=== PATIENT | female | born 1935 | race Asian ===

== ENCOUNTER 2019-12-22 16:24 | Inpatient (IN) | payer MEDICARE, MEDICAID ==
[~2019-12-22] VITALS: Ht 160 cm; Wt 50.9 kg
--- NOTE | 2019-12-22 16:24 | NUR ---
ED Nurse Note: Pt BIBA from home d/t abdominal pain and vomiting started today this morning. Pt is AOx4, assessed with facial grimace, guarding behavior on abdominal region. Pt is urdu in speaking. Placed on bed and gown; hooked to developer support engineer. VSS, on RA. Pt's skin is intact. Will continue to monitor.
--- NOTE | 2019-12-22 16:27 | Emergency Room Report ---
History of Present Illness General Chief Complaint: Abdominal Pain Source: Patient, EMS Present Illness HPI Presents with lower abdominal pain that began at 11 AM. This associated with vomiting. The pain is constant and severe. The paramedics are uncertain whether she has had this pain before. The alleged there is been no diarrhea. The pain is rated as severe and constant. Its mid and lower abdomen. Allergies: Coded Allergies: No Known Allergies (Unverified , 12/22/19) Patient History Past Medical History: see triage record Past Surgical History: other - Lumbar fusion Social History: Denies: smoking, alcohol use, drug use Social History Narrative Last Menstrual Period: N/A Reviewed Nursing Documentation: PMH: Agreed; PSxH: Agreed Nursing Documentation-PMH Hx Cardiac Problems: No - High Cholesterol Hx Hypertension: Yes Physical Exam Vital Signs Date Time Temp Pulse Resp B/P (MAP) Pulse Ox O2 Delivery O2 Flow Rate FiO2 12/22/19 16:18 97.5 90 18 120/76 (91) 100 Room Air Sp02 EP Interpretation: reviewed, normal General Appearance: alert, GCS 15, non-toxic, mild distress - In pain Head: normocephalic Eyes: bilateral eye normal inspection, bilateral eye PERRL, bilateral eye EOMI ENT: moist mucus membranes Neck: supple Respiratory: lungs clear, normal breath sounds Cardiovascular #1: regular rate, rhythm Cardiovascular #2: 2+ radial (R) Gastrointestinal: normal inspection, non-distended, no rebound, guarding - Right lower quadrant, tenderness, hernia - Right femoral, decreased bowel sounds Genitourinary: no CVA tenderness Musculoskeletal: back normal, normal range of motion Neurologic: alert, oriented x3, grossly normal Psychiatric: anxious - In pain Skin: no rash, warm/dry Procedures Additional Procedure Procedure Narrative Reduction of hernia with direct pressure by emergency physician.. Improvement in pain with reduction of hernia. 1942 Medical Decision Making Diagnostic Impression: Primary Impression: Femoral hernia of right side Additional Impression: Leukocytosis Qualified Codes: D72.828 - Other elevated white blood cell count ER Course Presents with severe lower abdominal pain beginning at 11 AM. Differential includes diverticulitis, urinary tract infection, aortic aneurysm, pancreatitis amongst others. Evaluation with EKG, chest x-ray and CT of the abdomen. Labs will be obtained. The patient is placed on a night monitor. Patient treated with IV hydration and analgesia. EKG no injury. Labs with leukocytosis. Elevated BUN. Urinalysis clear. Improvement after morphine but still with pain. No rebound in 1714 Due to leukocytosis cefepime administered. After CT scan hernia reduced with direct pressure. Some improvement in pain. Discussed with Dr. Schofield who came to the hospital and examined the patient on the floor. He states he reduce the hernia a slight amount more. Of note the hernia was completely reduced by me in the emergency department prior to going to the floor. Discussed findings with and patient. Although hernia was reduced in the emergency department she might need to have surgery. Laboratory Tests Test 12/22/19 16:30 12/22/19 17:00 12/22/19 17:44 White Blood Count 12.6 K/UL (4.8-10.8) H Red Blood Count 3.90 M/UL (4.20-5.40) L Hemoglobin 12.4 G/DL (12.0-16.0) Hematocrit 37.7 % (37.0-47.0) Mean Corpuscular Volume 97 FL (80-99) Mean Corpuscular Hemoglobin 31.8 PG (27.0-31.0) H Mean Corpuscular Hemoglobin Concent 32.9 G/DL (32.0-36.0) Red Cell Distribution Width 12.0 % (11.6-14.8) Platelet Count 263 K/UL (150-450) Mean Platelet Volume 7.4 FL (6.5-10.1) Neutrophils (%) (Auto) 84.9 % (45.0-75.0) H Lymphocytes (%) (Auto) 12.0 % (20.0-45.0) L Monocytes (%) (Auto) 2.1 % (1.0-10.0) Eosinophils (%) (Auto) 0.4 % (0.0-3.0) Basophils (%) (Auto) 0.7 % (0.0-2.0) Prothrombin Time 11.1 SEC (9.30-11.50) Prothrombin Time INR 1.0 (0.9-1.1) Activated Partial Thromboplast Time 25 SEC (23-33) Sodium Level 144 MMOL/L (136-145) Potassium Level 4.1 MMOL/L (3.5-5.1) Chloride Level 106 MMOL/L (98-107) Carbon Dioxide Level 27 MMOL/L (21-32) Anion Gap 12 mmol/L (5-15) Blood Urea Nitrogen 21 mg/dL (7-18) H Creatinine 0.8 MG/DL (0.55-1.30) Estimate Glomerular Filtration Rate > 60 mL/min (>60) Glucose Level 132 MG/DL (74-106) H Calcium Level 10.2 MG/DL (8.5-10.1) H Total Bilirubin 0.3 MG/DL (0.2-1.0) Aspartate Amino Transferase (AST) 15 U/L (15-37) Alanine Aminotransferase (ALT) 17 U/L (12-78) Alkaline Phosphatase 68 U/L (46-116) Troponin I 0.000 ng/mL (0.000-0.056) Total Protein 7.8 G/DL (6.4-8.2) Albumin 3.9 G/DL (3.4-5.0) Globulin 3.9 g/dL Albumin/Globulin Ratio 1.0 (1.0-2.7) Lipase 144 U/L (73-393) Urine Color Pale yellow Urine Appearance Cloudy Urine pH 8 (4.5-8.0) Urine Specific [place] 1.015 (1.005-1.035) Urine Protein Negative (NEGATIVE) Urine Glucose (UA) Negative (NEGATIVE) Urine Ketones Negative (NEGATIVE) Urine Blood 2+ (NEGATIVE) H Urine Nitrite Negative (NEGATIVE) Urine Bilirubin Negative (NEGATIVE) Urine Urobilinogen Normal MG/DL (0.0-1.0) Urine Leukocyte Esterase Negative (NEGATIVE) Urine RBC 0-2 /HPF (0 - 2) Urine WBC 0 /HPF (0 - 2) Urine Squamous Epithelial Cells Occasional /LPF Urine Amorphous Sediment Moderate /LPF (NONE) H Urine Bacteria Few /HPF (NONE) Lactic Acid Level 1.00 mmol/L (0.4-2.0) EKG Diagnostic Results Rate: normal Rhythm: NSR ST Segments: no acute changes - Nonspecific ST-T wave changes Rhythm Strip Diag. Results EP Interpretation: yes Rhythm: NSR, no PVC's, no ectopy Chest X-Ray Diagnostic Results Chest X-Ray Diagnostic Results : Chest X-Ray Ordered: Yes # of Views/Limited/Complete: 1 View Indication: Other EP Interpretation: Yes Interpretation: no consolidation, no effusion, no pneumothorax, other - Lumbar fusion Impression: No acute disease Electronically Signed by: Electronically signed by Erasmo Soares MD CT/MRI/US Diagnostic Results CT/MRI/US Diagnostic Results : Imaging Test Ordered: Abdomen and pelvis Impression 5.5 cm right femoral hernia containing mesenteric fat and a short segment of entrapped small bowel, causing proximal small bowel obstruction. Last Vital Signs Date Time Temp Pulse Resp B/P (MAP) Pulse Ox O2 Delivery O2 Flow Rate FiO2 12/23/19 00:00 98.5 82 20 118/64 (82) 96 12/22/19 23:02 Room Air Status: improved Disposition: ADMITTED INPATIENT Condition: Serious Erasmo Soares MD Dec 22, 2019 16:27
[2019-12-22] MEDS ORDERED: Metoclopramide 10mg/2ml Inj IVP ONE (16:30)
[2019-12-22] MEDS ORDERED: Omnipaque-300 100ml vial INJ PRN (16:30)
[2019-12-22] MEDS ORDERED: Morphine Sulfate 4mg/ml Inj (IV USE ONLY) IVP ONE (16:30)
[2019-12-22] MEDS ORDERED: DiphenhydrAMINE 50mg/ml Inj IVP ONE (16:30)
[2019-12-22 16:35] VITALS: BP 120/76
[2019-12-22 17:23] LABS: BASOPHILS % (AUTO) 0.7 % (0.0-2.0); EOSINOPHILS % (AUTO) 0.4 % (0.0-3.0); HEMATOCRIT 37.7 % (37.0-47.0); HEMOGLOBIN 12.4 G/DL (12.0-16.0); MEAN CORPUSCULAR VOLUME 97 FL (80-99); MONOCYTES % (AUTO) 2.1 % (1.0-10.0); NEUTROPHILS % (AUTO) 84.9 % (45.0-75.0); PLATELET COUNT 263 K/UL (150-450); WHITE BLOOD COUNT 12.6 K/UL (4.8-10.8)
[2019-12-22 17:23] LABS: APPEARANCE,URINE CLOUDY; BILIRUBIN, URINE NEGATIVE (NEGATIVE); COLOR,URINE PALE YELLOW; GLUCOSE, URINE (UA) NEGATIVE (NEGATIVE); KETONES,URINE NEGATIVE (NEGATIVE); LEUKOCYTE ESTERASE ,URINE NEGATIVE (NEGATIVE); NITRITE,URINE NEGATIVE (NEGATIVE); PH,URINE 8 (4.5-8.0); PROTEIN,URINE NEGATIVE (NEGATIVE); UROBILINOGEN,URINE NORMAL MG/DL (0.0-1.0)
--- NOTE | 2019-12-22 17:30 | Diagnostic Imaging Report ---
EXAM: XR Chest, 1 View CLINICAL HISTORY: ABD PAIN TECHNIQUE: Frontal view of the chest. COMPARISON: No relevant prior studies available. FINDINGS: Lungs: Unremarkable. No consolidation. Pleural space: Unremarkable. No pneumothorax. Heart: Unremarkable. No cardiomegaly. Mediastinum: Unremarkable. Bones/joints: Posterior lumbar fusion hardware. Osteopenia. Mild degenerative changes. Other findings: Scattered sutures over IMPRESSION: No acute findings in the chest.
[2019-12-22 17:48] LABS: ANION GAP 12 mmol/L (5-15); BLOOD UREA NITROGEN 21 mg/dL (7-18); CALCIUM 10.2 MG/DL (8.5-10.1); CARBON DIOXIDE 27 MMOL/L (21-32); CHLORIDE 106 MMOL/L (98-107); CREATININE 0.8 MG/DL (0.55-1.30); POTASSIUM 4.1 MMOL/L (3.5-5.1); SODIUM 144 MMOL/L (136-145)
[2019-12-22 17:53] LABS: ALANINE AMINOTRANSFERASE 17 U/L (12-78); ALBUMIN 3.9 G/DL (3.4-5.0); ALKALINE PHOSPHATASE 68 U/L (46-116); ASPARTATE AMINO TRANSFERASE 15 U/L (15-37); BILIRUBIN,TOTAL 0.3 MG/DL (0.2-1.0)
[2019-12-22 18:22] VITALS: BP 140/78
--- NOTE | 2019-12-22 18:22 | NUR ---
ED Nurse Note: Pt went on CT on stable condition.
--- NOTE | 2019-12-22 18:38 | NUR ---
ED Nurse Note: Pt returned from CT, on stable condition.
--- NOTE | 2019-12-22 19:14 | NUR ---
HAND-OFF: Report given to Zully PALACIOS.
--- NOTE | 2019-12-22 19:30 | Diagnostic Imaging Report ---
EXAM: CT Abdomen and Pelvis With Intravenous Contrast CLINICAL HISTORY: ABD PAIN TECHNIQUE: Axial computed tomography images of the abdomen and pelvis with intravenous contrast. CTDI is 3.7 mGy and DLP is 195 mGy-cm. One or more of the following dose reduction techniques were used: automated exposure control, adjustment of the mA and/or kV according to patient size, use of iterative reconstruction technique. Coronal and sagittal reconstructions are performed COMPARISON: No relevant prior studies available. FINDINGS: Lung bases: Unremarkable. No mass. No consolidation. ABDOMEN: Liver: Unremarkable. No mass. Gallbladder and bile ducts: Unremarkable. No calcified stones. No ductal dilation. Pancreas: Unremarkable. No mass. No ductal dilation. Spleen: Unremarkable. No splenomegaly. Adrenals: Unremarkable. No mass. Kidneys and ureters: Subcentimeter bilateral renal cysts, too small to characterize. No hydronephrosis. Stomach and bowel: Large right femoral hernia measures about 5.5 cm in maximal cross-sectional diameter, containing mesenteric fat and a short segment of entrapped small bowel, causing proximal small bowel dilatation/obstruction. Proximal small bowel dilatation measures up to 3 cm in maximal diameter. No mucosal thickening. PELVIS: Appendix: Normal appendix. Bladder: Unremarkable. No mass. Reproductive: Unremarkable as visualized. ABDOMEN and PELVIS: Intraperitoneal space: Unremarkable. No free air. No significant fluid collection. Bones/joints: Posterior lumbar fusion hardware from T12-L4 cause streak artifact, decreases the sensitivity on associated images. Osteopenia. Moderate degenerative changes. Soft tissues: Within normal limits Vasculature: Moderate amount of atherosclerotic calcifications. No abdominal aortic aneurysm. Lymph nodes: Unremarkable. No enlarged lymph nodes. IMPRESSION: 5.5 cm right femoral hernia containing mesenteric fat and a short segment of entrapped small bowel, causing proximal small bowel obstruction.
[2019-12-22] MEDS ORDERED: Cefepime HCl 1 GM in D5W 55 ML IVPB ONE (19:45)
--- NOTE | 2019-12-22 19:58 | NUR ---
ED Nurse Note: Patient presented with right inguinal hernia. Dr. Soares pushed it pack in to the abdomen, patient tolerated procedure well.
--- NOTE | 2019-12-22 20:25 | NUR ---
ED Nurse Note: Patient was admited to [facility] due to abdominal pain. Patient was transfered to the unit via gurney, with all belongings. Patient AAO x4, VSS at this time, skin is warm to touch.
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
--- NOTE | 2019-12-22 21:00 | NUR ---
NURSE NOTES: dr. barnes came and evaluated the patient. per dr. barnes, we will monitor patient's hernia and put patient on NPO except for ice chips and medicine. charge nurse made aware.
--- NOTE | 2019-12-22 21:30 | NUR ---
NURSE NOTES: Received a phone call from dr. garvey and received admission orders. per dr. garvey, he's covering for dr. jo. charge nurse made aware.
--- NOTE | 2019-12-22 21:55 | History & Physical ---
History and Physical History & Physicial History and Physical HPI Patient is an 84 year old woman admitted with lower abdominal pain with associated vomiting. The pain is constant and severe, no diarrhea. Noted to have incarcerated Hernia on CT Abdomen. S/p reduction of hernia 194 Allergies: No Known Allergies Past Medical History: Hypertension, Hypercholesterolemia ROS: Negative aside from above SH: NC FH: NC Physical Exam Vital Signs Noted Date Time Temp Pulse Resp B/P (MAP) Pulse Ox O2 Delivery O2 Flow Rate FiO2 12/22/19 16:18 97.5 90 18 120/76 (91) 100 Room Air PE WDWN HEENT: NCAT, moist mm Chest: CTAB Heart: HS1, HS2, RRR Abdomen: Some lower abdominal tenderness, no rebound Extremities: Well perfused, no edema CLASSROOM PARAPROFESSIONAL: Intact Impression: Irreducible right femoral hernia Abdominal pain SBO on Abdominal CT Hypertension Hyperlipidemia Plan IV hydration and analgesia. NPO Analgenia Zofran Monitor labs Surgical Consultation PPX Cleared for Surgery from Medical Perspective EKG no injury. Improvement after morphine but still with pain. No rebound in 1715 Laboratory Tests Test 12/22/19 16:30 12/22/19 17:00 12/22/19 17:44 White Blood Count 12.6 K/UL (4.8-10.8) H Red Blood Count 3.90 M/UL (4.20-5.40) L Hemoglobin 12.4 G/DL (12.0-16.0) Hematocrit 37.7 % (37.0-47.0) Mean Corpuscular Volume 97 FL (80-99) Mean Corpuscular Hemoglobin 31.8 PG (27.0-31.0) H Mean Corpuscular Hemoglobin Concent 32.9 G/DL (32.0-36.0) Red Cell Distribution Width 12.0 % (11.6-14.8) Platelet Count 263 K/UL (150-450) Mean Platelet Volume 7.4 FL (6.5-10.1) Neutrophils (%) (Auto) 84.9 % (45.0-75.0) H Lymphocytes (%) (Auto) 12.0 % (20.0-45.0) L Monocytes (%) (Auto) 2.1 % (1.0-10.0) Eosinophils (%) (Auto) 0.4 % (0.0-3.0) Basophils (%) (Auto) 0.7 % (0.0-2.0) Prothrombin Time 11.1 SEC (9.30-11.50) Prothrombin Time INR 1.0 (0.9-1.1) Activated Partial Thromboplast Time 25 SEC (23-33) Sodium Level 144 MMOL/L (136-145) Potassium Level 4.1 MMOL/L (3.5-5.1) Chloride Level 106 MMOL/L (98-107) Carbon Dioxide Level 27 MMOL/L (21-32) Anion Gap 12 mmol/L (5-15) Blood Urea Nitrogen 21 mg/dL (7-18) H Creatinine 0.8 MG/DL (0.55-1.30) Estimate Glomerular Filtration Rate > 60 mL/min (>60) Glucose Level 132 MG/DL (74-106) H Calcium Level 10.2 MG/DL (8.5-10.1) H Total Bilirubin 0.3 MG/DL (0.2-1.0) Aspartate Amino Transferase (AST) 15 U/L (15-37) Alanine Aminotransferase (ALT) 17 U/L (12-78) Alkaline Phosphatase 68 U/L (46-116) Troponin I 0.000 ng/mL (0.000-0.056) Total Protein 7.8 G/DL (6.4-8.2) Albumin 3.9 G/DL (3.4-5.0) Globulin 3.9 g/dL Albumin/Globulin Ratio 1.0 (1.0-2.7) Lipase 144 U/L (73-393) Urine Color Pale yellow Urine Appearance Cloudy Urine pH 8 (4.5-8.0) Urine Specific [place] 1.015 (1.005-1.035) Urine Protein Negative (NEGATIVE) Urine Glucose (UA) Negative (NEGATIVE) Urine Ketones Negative (NEGATIVE) Urine Blood 2+ (NEGATIVE) H Urine Nitrite Negative (NEGATIVE) Urine Bilirubin Negative (NEGATIVE) Urine Urobilinogen Normal MG/DL (0.0-1.0) Urine Leukocyte Esterase Negative (NEGATIVE) Urine RBC 0-2 /HPF (0 - 2) Urine WBC 0 /HPF (0 - 2) Urine Squamous Epithelial Cells Occasional /LPF Urine Amorphous Sediment Moderate /LPF (NONE) H Urine Bacteria Few /HPF (NONE) Lactic Acid Level 1.00 mmol/L (0.4-2.0) EKG: Rate: normal Rhythm: NSR ST Segments: no acute changes - Nonspecific ST-T wave changes CXR: no abnormality Erasmo Bennett MD Dec 22, 2019 21:55
[2019-12-22] MEDS ORDERED: Hydromorphone 0.5mg/0.5ml inj IVP PRN (22:00)
[2019-12-22] MEDS ORDERED: HydrALAZINE 25mg tab ORAL PRN (22:00)
[2019-12-22] MEDS ORDERED: D5 1/2NS 1,000 ML IV SCH (22:00)
--- NOTE | 2019-12-22 22:14 | Consultation ---
History of Present Illness General Date patient seen: Dec 22, 2019 Reason for Hospitalization: Abdominal Pain Present Illness HPI This is a very pleasant 84-year-old Turkmen speaking female who presented to [facility] emergency department for evaluation of abdominal pain beginning earlier today. Turkmen floral design teacher was used to obtain information from patient. States she has been having pain right groin pain since today which is a cramping abdominal pain. Intermittent nausea currently no emesis. Had a CT scan emergency permit identifying a incarcerated femoral hernia. Surgery was called to evaluate and assist with care. Patient seen, patient evaluated, chart reviewed no diarrhea cannot recall last bowel movement Allergies: Coded Allergies: No Known Allergies (Unverified , 12/22/19) Patient History History Provided By: Patient, Medical Record, PMD Healthcare decision maker Resuscitation status Advanced Directive on File Past Medical/Surgical History Past Medical/Surgical History: (1) Irreducible right femoral hernia Review of Systems Review of Symptoms General ROS: no weight loss or fever Psychological ROS: no depression or mood changes, no memory loss Ophthalmic ROS: no visual changes or eye irritation ENT ROS: no nasal congestion, hearing loss, dizziness Allergy and Immunology ROS: no allergic symptoms or urticaria Hematological and Lymphatic ROS: no swollen glands, unusual bleeding or bruising Endocrine ROS: no polyuria, polydipsia, weight changes, temperature intolerance Respiratory ROS: no cough, shortness of breath, or wheezing Cardiovascular ROS: no chest pain or dyspnea on exertion Gastrointestinal ROS: abdominal pain, no bright red blood in stool. Musculoskeletal ROS: no myalgias or arthralgias Neurological ROS: no TIA or stroke symptoms Dermatological ROS: no new or changing skin lesions, rashes or pruritis Physical Exam Physical Exam General appearance: alert, cooperative, no distress, appears stated age Head: Normocephalic, without obvious abnormality, atraumatic Eyes: conjunctivae/corneas clear. PERRL, EOM's intact. Fundi benign Throat: Lips, mucosa, and tongue normal. Teeth and gums normal Neck: supple, symmetrical, trachea midline, no adenopathy, thyroid: not enlarged, symmetric, no tenderness/mass/nodules, no carotid bruit and no JVD Lungs: clear to auscultation bilaterally Heart: regular rate and rhythm, S1, S2 normal, no murmur, click, rub or gallop Abdomen: soft, generalized discomfort/tender. Bowel sounds decreased. Right groin mass identified as femoral hernia, no organomegaly Extremities: extremities normal, atraumatic, no cyanosis or edema Pulses: 2+ and symmetric Skin: Skin color, texture, turgor normal. No rashes or lesions Neurologic: Grossly normal Last 24 Hour Vital Signs Date Time Temp Pulse Resp B/P (MAP) Pulse Ox O2 Delivery O2 Flow Rate FiO2 12/22/19 20:28 98.2 76 20 134/67 98 Room Air 12/22/19 18:22 97.5 91 20 140/78 100 Room Air 12/22/19 17:08 97.5 12/22/19 16:35 97.5 92 18 120/76 100 Room Air 12/22/19 16:35 90 18 Room Air 12/22/19 16:18 97.5 90 18 120/76 (91) 100 Room Air Laboratory Tests Test 12/22/19 16:30 12/22/19 17:00 12/22/19 17:44 White Blood Count 12.6 K/UL (4.8-10.8) H Red Blood Count 3.90 M/UL (4.20-5.40) L Hemoglobin 12.4 G/DL (12.0-16.0) Hematocrit 37.7 % (37.0-47.0) Mean Corpuscular Volume 97 FL (80-99) Mean Corpuscular Hemoglobin 31.8 PG (27.0-31.0) H Mean Corpuscular Hemoglobin Concent 32.9 G/DL (32.0-36.0) Red Cell Distribution Width 12.0 % (11.6-14.8) Platelet Count 263 K/UL (150-450) Mean Platelet Volume 7.4 FL (6.5-10.1) Neutrophils (%) (Auto) 84.9 % (45.0-75.0) H Lymphocytes (%) (Auto) 12.0 % (20.0-45.0) L Monocytes (%) (Auto) 2.1 % (1.0-10.0) Eosinophils (%) (Auto) 0.4 % (0.0-3.0) Basophils (%) (Auto) 0.7 % (0.0-2.0) Prothrombin Time 11.1 SEC (9.30-11.50) Prothromb Time International Ratio 1.0 (0.9-1.1) Activated Partial Thromboplast Time 25 SEC (23-33) Sodium Level 144 MMOL/L (136-145) Potassium Level 4.1 MMOL/L (3.5-5.1) Chloride Level 106 MMOL/L (98-107) Carbon Dioxide Level 27 MMOL/L (21-32) Anion Gap 12 mmol/L (5-15) Blood Urea Nitrogen 21 mg/dL (7-18) H Creatinine 0.8 MG/DL (0.55-1.30) Estimat Glomerular Filtration Rate > 60 mL/min (>60) Glucose Level 132 MG/DL (74-106) H Calcium Level 10.2 MG/DL (8.5-10.1) H Total Bilirubin 0.3 MG/DL (0.2-1.0) Aspartate Amino Transf (AST/SGOT) 15 U/L (15-37) Alanine Aminotransferase (ALT/SGPT) 17 U/L (12-78) Alkaline Phosphatase 68 U/L (46-116) Troponin I 0.000 ng/mL (0.000-0.056) Total Protein 7.8 G/DL (6.4-8.2) Albumin 3.9 G/DL (3.4-5.0) Globulin 3.9 g/dL Albumin/Globulin Ratio 1.0 (1.0-2.7) Lipase 144 U/L (73-393) Urine Color Pale yellow Urine Appearance Cloudy Urine pH 8 (4.5-8.0) Urine Specific [place] 1.015 (1.005-1.035) Urine Protein Negative (NEGATIVE) Urine Glucose (UA) Negative (NEGATIVE) Urine Ketones Negative (NEGATIVE) Urine Blood 2+ (NEGATIVE) H Urine Nitrite Negative (NEGATIVE) Urine Bilirubin Negative (NEGATIVE) Urine Urobilinogen Normal MG/DL (0.0-1.0) Urine Leukocyte Esterase Negative (NEGATIVE) Urine RBC 0-2 /HPF (0 - 2) Urine WBC 0 /HPF (0 - 2) Urine Squamous Epithelial Cells Occasional /LPF Urine Amorphous Sediment Moderate /LPF (NONE) H Urine Bacteria Few /HPF (NONE) Lactic Acid Level 1.00 mmol/L (0.4-2.0) Height (Feet): 5 Height (Inches): 4.00 Weight (Pounds): 115 Medications Current Medications Medications (Trade) Dose Ordered Sig/Quique Route PRN Reason Start Time Stop Time Status Last Admin Dose Admin Acetaminophen (Tylenol) 650 mg Q6H PRN ORAL Mild Pain/Temp > 100.5 12/22/19 22:00 01/21/20 21:59 Barium Sulfate (Readi-Cat 2) 450 ml NOW PRN ORAL Radiology Procedure 12/22/19 16:30 12/24/19 16:25 Dextrose/Sodium Chloride 1,000 ml @ 65 mls/hr [id number] IV 12/22/19 22:00 01/21/20 21:59 Heparin Sodium (Porcine) (Heparin 5000 units/ml) 5,000 units Q12HR SUBQ 12/23/19 09:00 01/22/20 08:59 Hydralazine HCl (Apresoline) 25 mg Q6H PRN ORAL For High Blood Pressure 12/22/19 22:00 01/21/20 21:59 Hydromorphone HCl (Dilaudid) 0.5 mg Q4H PRN IVP Severe Pain (Pain Scale 7-10) 12/22/19 22:00 12/29/19 21:59 Iohexol (OMNIPAQUE-300 100ml) 100 ml NOW PRN INJ Radiology Procedure 12/22/19 16:30 12/24/19 16:25 Ondansetron HCl (Zofran) 4 mg Q6H PRN IVP Nausea & Vomiting 12/22/19 22:00 01/21/20 21:59 Piperacillin Sod/ Tazobactam Sod 3.375 gm/Sodium Chloride 110 ml @ 27.5 mls/hr Q8H IVPB 12/22/19 23:00 12/29/19 22:59 Sodium Chloride 1,000 ml @ 300 mls/hr Q3H20M IV 12/22/19 16:30 01/21/20 16:29 12/22/19 20:04 Assessment/Plan Problem List: (1) Irreducible right femoral hernia Assessment & Plan: Patient identified to have a re-incarcerated right inguinal hernia as CT identified with a loop of bowel causing proximal obstruction. Case discussed with emergency room physician who had fortunately initially reduce the hernia in the emergency department admitted for evaluation and care. When seen at bedside she was still with discomfort but no peritonitis. She was identified to have a right inguinal femoral hernia which I was personally able to reduce as well at the bedside. Seems likely occurred since reduction in the emergency department again but is again reducible now. I had a long discussion with the patient regards to these findings. Patient states that once reduced if not feels better again. Currently no nausea vomiting. She does have decreased bowel sounds and no flatus currently. No acute emergency surgery recommended. Will monitor closely. If continues to recur will likely recommend surgery or if not improving. Will need to monitor exam closely as exact duration of incarceration unknown and initial exam unknown to myself. There is always a potential of nonviable bowel as well. Will monitor closely without examination. If develops worsening tenderness nausea vomiting or does not improve will proceed with diagnostic laparoscopy and intervention as necessary. N.p.o., IV fluids, serial exams we will follow with recommendations thank you for let me participate in patient's care ABDOMEN: Liver: Unremarkable. No mass. Gallbladder and bile ducts: Unremarkable. No calcified stones. No ductal dilation. Pancreas: Unremarkable. No mass. No ductal dilation. Spleen: Unremarkable. No splenomegaly. Adrenals: Unremarkable. No mass. Kidneys and ureters: Subcentimeter bilateral renal cysts, too small to characterize. No hydronephrosis. Stomach and bowel: Large right femoral hernia measures about 5.5 cm in maximal cross-sectional diameter, containing mesenteric fat and a short segment of entrapped small bowel, causing proximal small bowel dilatation/obstruction. Proximal small bowel dilatation measures up to 3 cm in maximal diameter. No mucosal thickening. PELVIS: Appendix: Normal appendix. Bladder: Unremarkable. No mass. Reproductive: Unremarkable as visualized. ABDOMEN and PELVIS: Intraperitoneal space: Unremarkable. No free air. No significant fluid collection. Bones/joints: Posterior lumbar fusion hardware from T12-L4 cause streak artifact, decreases the sensitivity on associated images. Osteopenia. Moderate degenerative changes. Soft tissues: Within normal limits Vasculature: Moderate amount of atherosclerotic calcifications. No abdominal aortic aneurysm. Lymph nodes: Unremarkable. No enlarged lymph nodes. IMPRESSION: 5.5 cm right femoral hernia containing mesenteric fat and a short segment of entrapped small bowel, causing proximal small bowel obstruction. ICD Codes: K41.30 - Unilateral femoral hernia, with obstruction, without gangrene, not specified as recurrent SNOMED: [id number] AlesiaolyvigneshClay Dec 22, 2019 22:14
[2019-12-22] MEDS ORDERED: Morphine Sulfate 2mg/ml Inj(IV/IM USE ONLY) IVP PRN (22:15)
[2019-12-22] MEDS ORDERED: DiphenhydrAMINE 25mg Tab ORAL PRN (22:15)
[2019-12-22] MEDS: Piperacillin/Tazobactam 3.375 GM in NS 110 ML IVPB SCH (22:20)
[2019-12-22] MEDS ORDERED: NS w/KCl 20mEq 1000ml 1,000 ML IV SCH (23:15)
[2019-12-23] VITALS: BP 118/64
[2019-12-23 04:00] VITALS: BP 104/63
[2019-12-23] MEDS: Piperacillin/Tazobactam 3.375 GM in NS 110 ML IVPB SCH ×3 (05:42→22:17)
--- NOTE | 2019-12-23 07:24 | NUR ---
HAND-OFF: Report given to gi luther.
--- NOTE | 2019-12-23 07:33 | NUR ---
NURSE NOTES: patient in bed. sleeping. no respiratory distress noted. no facial grimacing noted. NPO excepts ice and meds. IV on RAC running Zosyn. Xray abd scheduled today. bed in the lowest position and locked. call light within reach. will continue to provide plan of care.
[2019-12-23 08:00] VITALS: BP 117/64
[2019-12-23 08:27] LABS: BASOPHILS % (AUTO) 0.6 % (0.0-2.0); EOSINOPHILS % (AUTO) 1.1 % (0.0-3.0); HEMOGLOBIN 10.3 G/DL (12.0-16.0); LYMPHOCYTES % (AUTO) 27.4 % (20.0-45.0); MEAN CORPUSCULAR VOLUME 94 FL (80-99); MONOCYTES % (AUTO) 5.6 % (1.0-10.0); NEUTROPHILS % (AUTO) 65.4 % (45.0-75.0); PLATELET COUNT 211 K/UL (150-450); RED BLOOD COUNT 3.21 M/UL (4.20-5.40); RED CELL DISTRIBUTION WIDTH 10.7 % (11.6-14.8)
[2019-12-23 08:31] LABS: INR 1.1 (0.9-1.1)
[2019-12-23] MEDS ORDERED: Heparin 5000 units/ml inj SUBQ SCH (09:00)
[2019-12-23 09:09] LABS: ALANINE AMINOTRANSFERASE 14 U/L (12-78); ALBUMIN 2.7 G/DL (3.4-5.0); ALBUMIN/GLOBULIN RATIO 0.8 (1.0-2.7); ALKALINE PHOSPHATASE 49 U/L (46-116); ANION GAP 11 mmol/L (5-15); ASPARTATE AMINO TRANSFERASE 11 U/L (15-37); BILIRUBIN,TOTAL 0.5 MG/DL (0.2-1.0); BLOOD UREA NITROGEN 18 mg/dL (7-18); CALCIUM 8.5 MG/DL (8.5-10.1); CARBON DIOXIDE 24 MMOL/L (21-32); CHLORIDE 108 MMOL/L (98-107); CHOLESTEROL 192 MG/DL (< 200); CREATININE 0.7 MG/DL (0.55-1.30); HDL CHOLESTEROL 54 MG/DL (40-60); POTASSIUM 3.6 MMOL/L (3.5-5.1); SODIUM 143 MMOL/L (136-145); TRIGLYCERIDES 63 MG/DL (30-150)
[2019-12-23] MEDS ORDERED: DOXYCYCLINE MO100 MG ORAL (11:10)
[2019-12-23] MEDS ORDERED: BENICAR40 MG ORAL (11:11)
[2019-12-23] MEDS ORDERED: ELIQUIS2.5 MG PO (11:19)
[2019-12-23] MEDS ORDERED: MELOXICAM15 MG PO (11:19)
[2019-12-23] MEDS ORDERED: FENOFIBRATE145 M1 ORAL (11:19)
[2019-12-23] MEDS ORDERED: APRODINE TABLE1 EACH PO (11:19)
[2019-12-23] MEDS ORDERED: NORCO 5-325 TA1 EACH ORAL (11:19)
[2019-12-23] MEDS ORDERED: ZOLPIDEM TARTRAT5 MG ORAL (11:19)
[2019-12-23 12:00] VITALS: BP 145/76
--- NOTE | 2019-12-23 12:08 | Diagnostic Imaging Report ---
EXAM: XR Abdomen, 1 Views CLINICAL HISTORY: F/U TECHNIQUE: Frontal view of the abdomen/pelvis . COMPARISON: CT abdomen and pelvis 12/22/19 FINDINGS: Gastrointestinal tract: Oral contrast in the colon has reached the distal sigmoid colon. Focal gassy small bowel left mid abdomen without obstruction. Bones/joints: Fixation hardware L1-L4. IMPRESSION: 1. Oral contrast in the colon has reached the distal sigmoid colon. 2. Focal gassy small bowel left mid abdomen without obstruction.
--- NOTE | 2019-12-23 12:30 | NUR ---
NURSE NOTES: patient BP 143/76@1200. Hx of HTN. she takes Olmesartan 40mg tab PO daily at home. Patient seen by Dr. Bennett, received order continue Olmesartan 40mg daily. Pharmacy was not able to provide Olmesartan and pharmacist recommended equivalent medication, Avapro 300mg tab po daily. order noted and carried out.
--- NOTE | 2019-12-23 13:16 | Pre-Procedure Note/Attestation ---
Pre-Procedure Note/Attestation Complete Prior to Procedure Planned Procedure: right Procedure Narrative: Right femoral hernia repair with mesh Indications for Procedure Pre-Operative Diagnosis: incarcerated right femoral hernia Attestation I attest that I discussed the nature of the procedure; its benefits; risks and complications; and alternatives (and the risks and benefits of such alternatives ), prior to the procedure, with the patient (or the patient's legal sales representative jewelry). I attest that, if there was a reasonable possibility of needing a blood transfusion, the patient (or the patient's legal sales representative jewelry) was given the [facility] standardized written summary, pursuant to the Baldemar Karlo Blood Safety Act ([place] Health and Safety Code # 1645, as amended). I attest that I re-evaluated the patient just prior to the surgery and that there has been no change in the patient's H&P, except as documented below: Clay Davis Dec 23, 2019 13:16
--- NOTE | 2019-12-23 13:16 | General Surgery Progress Note ---
General Surgery-Progress Note Subjective Additional Comments Patient seen and examined bedside. No acute events. States she is feels better abdominal pain is improved. X-ray noted contrast in colon now. Not passing significant flatus. Not hungry. No nausea vomiting fever chills. Labs noted. On examination hernia has recurred and is noted again. More difficult and reduction today. Objective Last 24 Hour Vital Signs Date Time Temp Pulse Resp B/P (MAP) Pulse Ox O2 Delivery O2 Flow Rate FiO2 12/23/19 09:00 Room Air 12/23/19 08:00 97.2 72 15 117/64 (81) 98 12/23/19 04:00 97.2 71 19 104/63 (77) 98 12/23/19 00:00 98.5 82 20 118/64 (82) 96 12/22/19 23:02 Room Air 12/22/19 20:28 98.2 76 20 134/67 98 Room Air 12/22/19 18:22 97.5 91 20 140/78 100 Room Air 12/22/19 17:08 97.5 12/22/19 16:35 97.5 92 18 120/76 100 Room Air 12/22/19 16:35 90 18 Room Air 12/22/19 16:18 97.5 90 18 120/76 (91) 100 Room Air I&O Intake and Output 12/22/19 12/23/19 19:00 07:00 Intake Total 175.0 ml Balance 175.0 ml Intake IV Total 175.0 ml # Voids 1 Cardiovascular: RSR Respiratory: clear Abdomen: soft, flat, non-tender, decreased bowel sounds Extremities: no edema, no tenderness, no cyanosis Laboratory Tests Test 12/22/19 16:30 12/22/19 17:00 12/22/19 17:44 12/23/19 05:37 White Blood Count 12.6 K/UL (4.8-10.8) H 9.0 K/UL (4.8-10.8) Red Blood Count 3.90 M/UL (4.20-5.40) L 3.21 M/UL (4.20-5.40) L Hemoglobin 12.4 G/DL (12.0-16.0) 10.3 G/DL (12.0-16.0) L Hematocrit 37.7 % (37.0-47.0) 30.0 % (37.0-47.0) L Mean Corpuscular Volume 97 FL (80-99) 94 FL (80-99) Mean Corpuscular Hemoglobin 31.8 PG (27.0-31.0) H 32.1 PG (27.0-31.0) H Mean Corpuscular Hemoglobin Concent 32.9 G/DL (32.0-36.0) 34.3 G/DL (32.0-36.0) Red Cell Distribution Width 12.0 % (11.6-14.8) 10.7 % (11.6-14.8) L Platelet Count 263 K/UL (150-450) 211 K/UL (150-450) Mean Platelet Volume 7.4 FL (6.5-10.1) 5.6 FL (6.5-10.1) L Neutrophils (%) (Auto) 84.9 % (45.0-75.0) H 65.4 % (45.0-75.0) Lymphocytes (%) (Auto) 12.0 % (20.0-45.0) L 27.4 % (20.0-45.0) Monocytes (%) (Auto) 2.1 % (1.0-10.0) 5.6 % (1.0-10.0) Eosinophils (%) (Auto) 0.4 % (0.0-3.0) 1.1 % (0.0-3.0) Basophils (%) (Auto) 0.7 % (0.0-2.0) 0.6 % (0.0-2.0) Prothrombin Time 11.1 SEC (9.30-11.50) 11.4 SEC (9.30-11.50) Prothromb Time International Ratio 1.0 (0.9-1.1) 1.1 (0.9-1.1) Activated Partial Thromboplast Time 25 SEC (23-33) 26 SEC (23-33) Sodium Level 144 MMOL/L (136-145) 143 MMOL/L (136-145) Potassium Level 4.1 MMOL/L (3.5-5.1) 3.6 MMOL/L (3.5-5.1) Chloride Level 106 MMOL/L (98-107) 108 MMOL/L (98-107) H Carbon Dioxide Level 27 MMOL/L (21-32) 24 MMOL/L (21-32) Anion Gap 12 mmol/L (5-15) 11 mmol/L (5-15) Blood Urea Nitrogen 21 mg/dL (7-18) H 18 mg/dL (7-18) Creatinine 0.8 MG/DL (0.55-1.30) 0.7 MG/DL (0.55-1.30) Estimat Glomerular Filtration Rate > 60 mL/min (>60) > 60 mL/min (>60) Glucose Level 132 MG/DL (74-106) H 99 MG/DL (74-106) Calcium Level 10.2 MG/DL (8.5-10.1) H 8.5 MG/DL (8.5-10.1) Total Bilirubin 0.3 MG/DL (0.2-1.0) 0.5 MG/DL (0.2-1.0) Aspartate Amino Transf (AST/SGOT) 15 U/L (15-37) 11 U/L (15-37) L Alanine Aminotransferase (ALT/SGPT) 17 U/L (12-78) 14 U/L (12-78) Alkaline Phosphatase 68 U/L (46-116) 49 U/L (46-116) Troponin I 0.000 ng/mL (0.000-0.056) Total Protein 7.8 G/DL (6.4-8.2) 5.9 G/DL (6.4-8.2) L Albumin 3.9 G/DL (3.4-5.0) 2.7 G/DL (3.4-5.0) L Globulin 3.9 g/dL 3.2 g/dL Albumin/Globulin Ratio 1.0 (1.0-2.7) 0.8 (1.0-2.7) L Lipase 144 U/L (73-393) Urine Color Pale yellow Urine Appearance Cloudy Urine pH 8 (4.5-8.0) Urine Specific [place] 1.015 (1.005-1.035) Urine Protein Negative (NEGATIVE) Urine Glucose (UA) Negative (NEGATIVE) Urine Ketones Negative (NEGATIVE) Urine Blood 2+ (NEGATIVE) H Urine Nitrite Negative (NEGATIVE) Urine Bilirubin Negative (NEGATIVE) Urine Urobilinogen Normal MG/DL (0.0-1.0) Urine Leukocyte Esterase Negative (NEGATIVE) Urine RBC 0-2 /HPF (0 - 2) Urine WBC 0 /HPF (0 - 2) Urine Squamous Epithelial Cells Occasional /LPF Urine Amorphous Sediment Moderate /LPF (NONE) H Urine Bacteria Few /HPF (NONE) Lactic Acid Level 1.00 mmol/L (0.4-2.0) Erythrocyte Sedimentation Rate 20 MM/HR (0-30) Hemoglobin A1c 5.4 % (4.3-6.0) C-Reactive Protein, Quantitative < 0.4 mg/dL (0.00-0.90) Pro-B-Type Natriuretic Peptide 223 pg/mL (0-125) H Triglycerides Level 63 MG/DL (30-150) Cholesterol Level 192 MG/DL (< 200) LDL Cholesterol 117 mg/dL (<100) H HDL Cholesterol 54 MG/DL (40-60) Cholesterol/HDL Ratio 3.6 (3.3-4.4) Plan Problems: (1) Leukocytosis (2) Femoral hernia of right side Assessment & Plan: Patient identified to have a re-incarcerated right inguinal hernia as CT identified with a loop of bowel causing proximal obstruction. Case discussed with emergency room physician who had fortunately initially reduce the hernia in the emergency department admitted for evaluation and care. When seen at bedside she was still with discomfort but no peritonitis. She was identified to have a right inguinal femoral hernia which I was personally able to reduce as well at the bedside. Seems likely occurred since reduction in the emergency department again but is again reducible now. I had a long discussion with the patient regards to these findings. Patient states that once reduced if not feels better again. Currently no nausea vomiting. She does have decreased bowel sounds and no flatus currently. No acute emergency surgery recommended. Will monitor closely. If continues to recur will likely recommend surgery or if not improving. Will need to monitor exam closely as exact duration of incarceration unknown and initial exam unknown to myself. There is always a potential of nonviable bowel as well. Will monitor closely without examination. If develops worsening tenderness nausea vomiting or does not improve will proceed with diagnostic laparoscopy and intervention as necessary. N.p.o., IV fluids, serial exams we will follow with recommendations thank you for let me participate in patient's care ABDOMEN: Liver: Unremarkable. No mass. Gallbladder and bile ducts: Unremarkable. No calcified stones. No ductal dilation. Pancreas: Unremarkable. No mass. No ductal dilation. Spleen: Unremarkable. No splenomegaly. Adrenals: Unremarkable. No mass. Kidneys and ureters: Subcentimeter bilateral renal cysts, too small to characterize. No hydronephrosis. Stomach and bowel: Large right femoral hernia measures about 5.5 cm in maximal cross-sectional diameter, containing mesenteric fat and a short segment of entrapped small bowel, causing proximal small bowel dilatation/obstruction. Proximal small bowel dilatation measures up to 3 cm in maximal diameter. No mucosal thickening. PELVIS: Appendix: Normal appendix. Bladder: Unremarkable. No mass. Reproductive: Unremarkable as visualized. ABDOMEN and PELVIS: Intraperitoneal space: Unremarkable. No free air. No significant fluid collection. Bones/joints: Posterior lumbar fusion hardware from T12-L4 cause streak artifact, decreases the sensitivity on associated images. Osteopenia. Moderate degenerative changes. Soft tissues: Within normal limits Vasculature: Moderate amount of atherosclerotic calcifications. No abdominal aortic aneurysm. Lymph nodes: Unremarkable. No enlarged lymph nodes. IMPRESSION: 5.5 cm right femoral hernia containing mesenteric fat and a short segment of entrapped small bowel, causing proximal small bowel obstruction. Additional Comments Patient seen examined bedside. She feels better and x-rays improved obstruction is resolved unfortunately hernia is recurred and more difficult to reduce. I discussed this with the patient using a delinquent account clerk as well as discussed it with her son. Patient states that she understands and it is causing her discomfort and has not been like this before. Given these findings and the course of care I strongly recommend repair of this hernia prior to discharge as high risk for potential interval re-incarceration as it continues to come out repetitively. I discussed with the patient and family and they have consented to proceed with procedure will plan for tomorrow morning. Clay Davis Dec 23, 2019 13:15
[2019-12-23] MEDS: Irbesartan 150mg tablet ORAL SCH (13:51)
[2019-12-23] MEDS ORDERED: NS 500ML ONE (15:49)
[2019-12-23 16:00] VITALS: BP 140/80
--- NOTE | 2019-12-23 16:03 | Pulmonology Progress Note ---
Assessment/Plan Assessment/Plan Pulmonary Progress Note HPI Patient is an 84 year old woman admitted with lower abdominal pain with associated vomiting. The pain is constant and severe, no diarrhea. Noted to have incarcerated Hernia on CT Abdomen. S/p reduction of hernia 194, has required subsequent reductions by Surgery Allergies: No Known Allergies Past Medical History: Hypertension, Hypercholesterolemia ROS: Negative aside from above SH: NC FH: NC Physical Exam Vital Signs Noted WDWN HEENT: NCAT, moist mm Chest: CTAB Heart: HS1, HS2, RRR Abdomen: Some lower abdominal tenderness, no rebound Extremities: Well perfused, no edema BUSHEL GIRL: Intact Impression: Persistent right femoral hernia Abdominal pain SBO on Abdominal CT Hypertension Hyperlipidemia Plan IV hydration and analgesia. NPO Analgenia Zofran Monitor labs Surgical Consultation PPX Cleared for Surgery from Medical Perspective EKG no injury. Improvement after morphine but still with pain. No rebound in 1715 Laboratory Tests Test 12/22/19 16:30 12/22/19 17:00 12/22/19 17:44 White Blood Count 12.6 K/UL (4.8-10.8) H Red Blood Count 3.90 M/UL (4.20-5.40) L Hemoglobin 12.4 G/DL (12.0-16.0) Hematocrit 37.7 % (37.0-47.0) Mean Corpuscular Volume 97 FL (80-99) Mean Corpuscular Hemoglobin 31.8 PG (27.0-31.0) H Mean Corpuscular Hemoglobin Concent 32.9 G/DL (32.0-36.0) Red Cell Distribution Width 12.0 % (11.6-14.8) Platelet Count 263 K/UL (150-450) Mean Platelet Volume 7.4 FL (6.5-10.1) Neutrophils (%) (Auto) 84.9 % (45.0-75.0) H Lymphocytes (%) (Auto) 12.0 % (20.0-45.0) L Monocytes (%) (Auto) 2.1 % (1.0-10.0) Eosinophils (%) (Auto) 0.4 % (0.0-3.0) Basophils (%) (Auto) 0.7 % (0.0-2.0) Prothrombin Time 11.1 SEC (9.30-11.50) Prothrombin Time INR 1.0 (0.9-1.1) Activated Partial Thromboplast Time 25 SEC (23-33) Sodium Level 144 MMOL/L (136-145) Potassium Level 4.1 MMOL/L (3.5-5.1) Chloride Level 106 MMOL/L (98-107) Carbon Dioxide Level 27 MMOL/L (21-32) Anion Gap 12 mmol/L (5-15) Blood Urea Nitrogen 21 mg/dL (7-18) H Creatinine 0.8 MG/DL (0.55-1.30) Estimate Glomerular Filtration Rate > 60 mL/min (>60) Glucose Level 132 MG/DL (74-106) H Calcium Level 10.2 MG/DL (8.5-10.1) H Total Bilirubin 0.3 MG/DL (0.2-1.0) Aspartate Amino Transferase (AST) 15 U/L (15-37) Alanine Aminotransferase (ALT) 17 U/L (12-78) Alkaline Phosphatase 68 U/L (46-116) Troponin I 0.000 ng/mL (0.000-0.056) Total Protein 7.8 G/DL (6.4-8.2) Albumin 3.9 G/DL (3.4-5.0) Globulin 3.9 g/dL Albumin/Globulin Ratio 1.0 (1.0-2.7) Lipase 144 U/L (73-393) Urine Color Pale yellow Urine Appearance Cloudy Urine pH 8 (4.5-8.0) Urine Specific Brule 1.015 (1.005-1.035) Urine Protein Negative (NEGATIVE) Urine Glucose (UA) Negative (NEGATIVE) Urine Ketones Negative (NEGATIVE) Urine Blood 2+ (NEGATIVE) H Urine Nitrite Negative (NEGATIVE) Urine Bilirubin Negative (NEGATIVE) Urine Urobilinogen Normal MG/DL (0.0-1.0) Urine Leukocyte Esterase Negative (NEGATIVE) Urine RBC 0-2 /HPF (0 - 2) Urine WBC 0 /HPF (0 - 2) Urine Squamous Epithelial Cells Occasional /LPF Urine Amorphous Sediment Moderate /LPF (NONE) H Urine Bacteria Few /HPF (NONE) Lactic Acid Level 1.00 mmol/L (0.4-2.0) EKG: Rate: normal Rhythm: NSR ST Segments: no acute changes - Nonspecific ST-T wave changes CXR: no abnormality CT Abdomen: noted Subjective ROS Limited/Unobtainable: No Allergies: Coded Allergies: No Known Allergies (Unverified , 12/22/19) Objective Last 24 Hour Vital Signs Date Time Temp Pulse Resp B/P (MAP) Pulse Ox O2 Delivery O2 Flow Rate FiO2 12/23/19 13:51 145/76 12/23/19 12:00 98.7 81 17 145/76 (99) 97 12/23/19 09:00 Room Air 12/23/19 08:00 97.2 72 15 117/64 (81) 98 12/23/19 04:00 97.2 71 19 104/63 (77) 98 12/23/19 00:00 98.5 82 20 118/64 (82) 96 12/22/19 23:02 Room Air 12/22/19 20:28 98.2 76 20 134/67 98 Room Air 12/22/19 18:22 97.5 91 20 140/78 100 Room Air 12/22/19 17:08 97.5 12/22/19 16:35 97.5 92 18 120/76 100 Room Air 12/22/19 16:35 90 18 Room Air 12/22/19 16:18 97.5 90 18 120/76 (91) 100 Room Air Intake and Output 12/22/19 12/23/19 19:00 07:00 Intake Total 202.5 ml Balance 202.5 ml Intake IV Total 202.5 ml # Voids 1 Laboratory Tests 12/22/19 16:30: White Blood Count 12.6H, Red Blood Count 3.90L, Hemoglobin 12.4, Hematocrit 37.7 , Mean Corpuscular Volume 97, Mean Corpuscular Hemoglobin 31.8H, Mean Corpuscular Hemoglobin Concent 32.9, Red Cell Distribution Width 12.0, Platelet Count 263, Mean Platelet Volume 7.4, Neutrophils (%) (Auto) 84.9H, Lymphocytes ( %) (Auto) 12.0L, Monocytes (%) (Auto) 2.1, Eosinophils (%) (Auto) 0.4, Basophils (%) (Auto) 0.7, Prothrombin Time 11.1, Prothromb Time International Ratio 1.0, Activated Partial Thromboplast Time 25, Sodium Level 144, Potassium Level 4.1, Chloride Level 106, Carbon Dioxide Level 27, Anion Gap 12, Blood Urea Nitrogen 21H, Creatinine 0.8, Estimat Glomerular Filtration Rate > 60, Glucose Level 132H, Calcium Level 10.2H, Total Bilirubin 0.3, Aspartate Amino Transf (AST/SGOT) 15, Alanine Aminotransferase (ALT/SGPT) 17, Alkaline Phosphatase 68, Troponin I 0.000, Total Protein 7.8, Albumin 3.9, Globulin 3.9, Albumin/Globulin Ratio 1.0, Lipase 144 12/22/19 17:00: Urine Color Pale yellow, Urine Appearance Cloudy, Urine pH 8, Urine Specific Brule 1.015, Urine Protein Negative, Urine Glucose (UA) Negative, Urine Ketones Negative, Urine Blood 2+H, Urine Nitrite Negative, Urine Bilirubin Negative, Urine Urobilinogen Normal, Urine Leukocyte Esterase Negative, Urine RBC 0-2, Urine WBC 0, Urine Squamous Epithelial Cells Occasional, Urine Amorphous Sediment ModerateH, Urine Bacteria Few 12/22/19 17:44: Lactic Acid Level 1.00 12/23/19 05:37: White Blood Count 9.0, Red Blood Count 3.21L, Hemoglobin 10.3L, Hematocrit 30.0L , Mean Corpuscular Volume 94, Mean Corpuscular Hemoglobin 32.1H, Mean Corpuscular Hemoglobin Concent 34.3, Red Cell Distribution Width 10.7L, Platelet Count 211, Mean Platelet Volume 5.6L, Neutrophils (%) (Auto) 65.4, Lymphocytes (%) (Auto) 27.4, Monocytes (%) (Auto) 5.6, Eosinophils (%) (Auto) 1.1, Basophils (%) (Auto) 0.6, Prothrombin Time 11.4, Prothromb Time International Ratio 1.1, Activated Partial Thromboplast Time 26, Sodium Level 143, Potassium Level 3.6, Chloride Level 108H, Carbon Dioxide Level 24, Anion Gap 11, Blood Urea Nitrogen 18, Creatinine 0.7, Estimat Glomerular Filtration Rate > 60, Glucose Level 99, Calcium Level 8.5, Total Bilirubin 0.5, Aspartate Amino Transf (AST/SGOT) 11L, Alanine Aminotransferase (ALT/SGPT) 14, Alkaline Phosphatase 49, Total Protein 5.9L, Albumin 2.7L, Globulin 3.2, Albumin/ Globulin Ratio 0.8L, Erythrocyte Sedimentation Rate 20, Hemoglobin A1c 5.4, C- Reactive Protein, Quantitative < 0.4, Pro-B-Type Natriuretic Peptide 223H, Triglycerides Level 63, Cholesterol Level 192, LDL Cholesterol 117H, HDL Cholesterol 54, Cholesterol/HDL Ratio 3.6 Current Medications Medications (Trade) Dose Ordered Sig/Quique Route PRN Reason Start Time Stop Time Status Last Admin Dose Admin Acetaminophen (Tylenol) 650 mg Q4H PRN ORAL Mild Pain (Pain Scale 1-3) 12/22/19 22:15 01/21/20 22:14 Acetaminophen (Tylenol) 650 mg Q6H PRN ORAL Mild Pain/Temp > 100.5 12/22/19 22:00 01/21/20 21:59 Barium Sulfate (Readi-Cat 2) 450 ml NOW PRN ORAL Radiology Procedure 12/22/19 16:30 12/24/19 16:25 Dextrose (Dextrose 50%) 25 ml Q30M PRN IV Hypoglycemia 12/22/19 22:15 01/21/20 22:14 Dextrose (Dextrose 50%) 50 ml Q30M PRN IV Hypoglycemia 12/22/19 22:15 01/21/20 22:14 Dextrose/Sodium Chloride 1,000 ml @ 75 mls/hr [id number] IV 12/23/19 22:00 01/22/20 21:59 Diphenhydramine HCl (Benadryl) 25 mg Q6H PRN ORAL Itching/Pruritis 12/22/19 22:15 01/21/20 22:14 Famotidine (Pepcid I.v.) 20 mg DAILY IVP 12/23/19 09:00 01/22/20 08:59 12/23/19 09:52 Hydralazine HCl (Apresoline) 25 mg Q6H PRN ORAL For High Blood Pressure 12/22/19 22:00 01/21/20 21:59 Hydromorphone HCl (Dilaudid) 0.5 mg Q4H PRN IVP Severe Pain (Pain Scale 7-10) 12/22/19 22:00 12/29/19 21:59 Iohexol (OMNIPAQUE-300 100ml) 100 ml NOW PRN INJ Radiology Procedure 12/22/19 16:30 12/24/19 16:25 Irbesartan (Avapro) 300 mg DAILY ORAL 12/23/19 13:05 01/22/20 13:04 12/23/19 13:51 Ondansetron HCl (Zofran) 4 mg Q6H PRN IVP Nausea & Vomiting 12/22/19 22:15 01/21/20 22:14 Piperacillin Sod/ Tazobactam Sod 3.375 gm/Sodium Chloride 110 ml @ 27.5 mls/hr Q8H IVPB 12/22/19 23:00 12/29/19 22:59 12/23/19 14:45 Erasmo Bennett MD Dec 23, 2019 16:03
--- NOTE | 2019-12-23 19:09 | NUR ---
HAND-OFF: Report given to PHILIP Montoya.
--- NOTE | 2019-12-23 19:30 | NUR ---
NURSE NOTES: Received report from PHILIP Booker. AAO x 4, Luxembourgish speaking, ambulatory. Denies pain on abd. IV site intact and running IVF and antibiotic. Surgery scheduled tomorrow. Pt is on NPO. Bed locked, lowest position, side rails up, call light within reach. Will continue to monitor.
[2019-12-23 20:00] VITALS: BP 135/70
[2019-12-23] MEDS: D5 1/2NS 1,000 ML IV SCH (20:53)
[2019-12-24] VITALS (14 sets, daily range): BP systolic 117–142; BP diastolic 62–75
[2019-12-24] MEDS: Piperacillin/Tazobactam 3.375 GM in NS 110 ML IVPB SCH ×3 (06:00→23:03)
[2019-12-24 07:25] LABS: ANION GAP 9 mmol/L (5-15); BLOOD UREA NITROGEN 11 mg/dL (7-18); CALCIUM 8.6 MG/DL (8.5-10.1); CARBON DIOXIDE 24 MMOL/L (21-32); CHLORIDE 110 MMOL/L (98-107); CREATININE 0.7 MG/DL (0.55-1.30); POTASSIUM 3.5 MMOL/L (3.5-5.1); SODIUM 143 MMOL/L (136-145)
[2019-12-24 07:44] LABS: BASOPHILS % (AUTO) 1.4 % (0.0-2.0); EOSINOPHILS % (AUTO) 3.3 % (0.0-3.0); HEMATOCRIT 32.4 % (37.0-47.0); HEMOGLOBIN 11.3 G/DL (12.0-16.0); LYMPHOCYTES % (AUTO) 32.7 % (20.0-45.0); MEAN CORPUSCULAR VOLUME 93 FL (80-99); MONOCYTES % (AUTO) 6.9 % (1.0-10.0); NEUTROPHILS % (AUTO) 55.7 % (45.0-75.0); PLATELET COUNT 224 K/UL (150-450); RED BLOOD COUNT 3.47 M/UL (4.20-5.40); RED CELL DISTRIBUTION WIDTH 10.7 % (11.6-14.8); WHITE BLOOD COUNT 5.8 K/UL (4.8-10.8)
--- NOTE | 2019-12-24 07:47 | NUR ---
HAND-OFF: Report given to PHILIP Del Valle.
--- NOTE | 2019-12-24 07:52 | NUR ---
NURSE NOTES: Received pt in bed, sleeping. RA. No s/s of pain/distress noted. IV on RAC 20g noted, running D5 1/2 NS @ 75 ml/hr. Pt on NPO for surgery scheduled for today. Side rails x 2. Bed in the lowest, locked, and alarm on. Call light within reach. Will continue to monitor
[2019-12-24] MEDS: Irbesartan 150mg tablet ORAL SCH (08:45)
--- NOTE | 2019-12-24 08:51 | General Progress Note ---
Assessment/Plan Assessment/Plan: Right femoral hernia Abdominal pain SBO on Abdominal CT Hypertension Hyperlipidemia PLAN surgery follow up await final decision monitor abdominal exam IV hydration follow up for dc planning impression, plan, and exam edited and reviewed in detail care discussed with RN Subjective Allergies: Coded Allergies: No Known Allergies (Unverified , 12/22/19) Subjective care noted and reviewed Objective Last 24 Hour Vital Signs Date Time Temp Pulse Resp B/P (MAP) Pulse Ox O2 Delivery O2 Flow Rate FiO2 12/24/19 08:45 142/73 12/24/19 08:37 97.2 71 20 142/73 (96) 98 12/24/19 04:00 98.1 78 20 130/72 (91) 96 12/24/19 00:00 97.7 75 20 126/66 (86) 97 12/23/19 21:00 Room Air 12/23/19 20:00 98.2 71 20 135/70 (91) 95 12/23/19 16:00 98.0 83 17 140/80 (100) 97 12/23/19 13:51 145/76 12/23/19 12:00 98.7 81 17 145/76 (99) 97 12/23/19 09:00 Room Air Intake and Output 12/23/19 12/24/19 19:00 07:00 Intake Total 242.5 ml Balance 242.5 ml Intake Oral 50 ml IV Total 192.5 ml # Voids 3 3 Laboratory Tests 12/24/19 05:20: White Blood Count 5.8, Red Blood Count 3.47L, Hemoglobin 11.3L, Hematocrit 32.4L , Mean Corpuscular Volume 93, Mean Corpuscular Hemoglobin 32.7H, Mean Corpuscular Hemoglobin Concent 35.0, Red Cell Distribution Width 10.7L, Platelet Count 224, Mean Platelet Volume 6.3L, Neutrophils (%) (Auto) 55.7, Lymphocytes (%) (Auto) 32.7, Monocytes (%) (Auto) 6.9, Eosinophils (%) (Auto) 3.3H, Basophils (%) (Auto) 1.4, Sodium Level 143, Potassium Level 3.5, Chloride Level 110H, Carbon Dioxide Level 24, Anion Gap 9, Blood Urea Nitrogen 11, Creatinine 0.7, Estimat Glomerular Filtration Rate > 60, Glucose Level 105, Calcium Level 8.6 Height (Feet): 5 Height (Inches): 3.00 Weight (Pounds): 111 Objective WDWN NAD clear breath sounds bilaterally without rhonchi or wheeze [id number] without MRG NABS tender abdomen no CCE nonfocal Rajinder Bishop MD Dec 24, 2019 08:51
[2019-12-24] MEDS: D5 1/2NS 1,000 ML IV SCH (11:33)
--- NOTE | 2019-12-24 12:21 | Surgery Progress Note ---
Surgery Progress Note Subjective Additional Comments still right groin pain or today consent signed Objective Last 24 Hour Vital Signs Date Time Temp Pulse Resp B/P (MAP) Pulse Ox O2 Delivery O2 Flow Rate FiO2 12/24/19 12:00 97.7 65 20 126/63 (84) 98 12/24/19 09:00 Room Air 12/24/19 08:45 142/73 12/24/19 08:37 97.2 71 20 142/73 (96) 98 12/24/19 04:00 98.1 78 20 130/72 (91) 96 12/24/19 00:00 97.7 75 20 126/66 (86) 97 12/23/19 21:00 Room Air 12/23/19 20:00 98.2 71 20 135/70 (91) 95 12/23/19 16:00 98.0 83 17 140/80 (100) 97 12/23/19 13:51 145/76 I&O Intake and Output 12/23/19 12/24/19 19:00 07:00 Intake Total 242.5 ml Balance 242.5 ml Intake Oral 50 ml IV Total 192.5 ml # Voids 3 3 Cardiovascular: RSR Respiratory: clear Abdomen: soft, non-tender, present bowel sounds Extremities: no edema, no cyanosis Laboratory Tests Test 12/24/19 05:20 White Blood Count 5.8 K/UL (4.8-10.8) Red Blood Count 3.47 M/UL (4.20-5.40) L Hemoglobin 11.3 G/DL (12.0-16.0) L Hematocrit 32.4 % (37.0-47.0) L Mean Corpuscular Volume 93 FL (80-99) Mean Corpuscular Hemoglobin 32.7 PG (27.0-31.0) H Mean Corpuscular Hemoglobin Concent 35.0 G/DL (32.0-36.0) Red Cell Distribution Width 10.7 % (11.6-14.8) L Platelet Count 224 K/UL (150-450) Mean Platelet Volume 6.3 FL (6.5-10.1) L Neutrophils (%) (Auto) 55.7 % (45.0-75.0) Lymphocytes (%) (Auto) 32.7 % (20.0-45.0) Monocytes (%) (Auto) 6.9 % (1.0-10.0) Eosinophils (%) (Auto) 3.3 % (0.0-3.0) H Basophils (%) (Auto) 1.4 % (0.0-2.0) Sodium Level 143 MMOL/L (136-145) Potassium Level 3.5 MMOL/L (3.5-5.1) Chloride Level 110 MMOL/L (98-107) H Carbon Dioxide Level 24 MMOL/L (21-32) Anion Gap 9 mmol/L (5-15) Blood Urea Nitrogen 11 mg/dL (7-18) Creatinine 0.7 MG/DL (0.55-1.30) Estimat Glomerular Filtration Rate > 60 mL/min (>60) Glucose Level 105 MG/DL (74-106) Calcium Level 8.6 MG/DL (8.5-10.1) Plan Problems: (1) Leukocytosis (2) Femoral hernia of right side Assessment & Plan: Patient identified to have a re-incarcerated right inguinal hernia as CT identified with a loop of bowel causing proximal obstruction. Case discussed with emergency room physician who had fortunately initially reduce the hernia in the emergency department admitted for evaluation and care. When seen at bedside she was still with discomfort but no peritonitis. She was identified to have a right inguinal femoral hernia which I was personally able to reduce as well at the bedside. Seems likely occurred since reduction in the emergency department again but is again reducible now. I had a long discussion with the patient regards to these findings. Patient states that once reduced if not feels better again. Currently no nausea vomiting. She does have decreased bowel sounds and no flatus currently. No acute emergency surgery recommended. Will monitor closely. If continues to recur will likely recommend surgery or if not improving. Will need to monitor exam closely as exact duration of incarceration unknown and initial exam unknown to myself. There is always a potential of nonviable bowel as well. Will monitor closely without examination. If develops worsening tenderness nausea vomiting or does not improve will proceed with diagnostic laparoscopy and intervention as necessary. N.p.o., IV fluids, serial exams we will follow with recommendations thank you for let me participate in patient's care ABDOMEN: Liver: Unremarkable. No mass. Gallbladder and bile ducts: Unremarkable. No calcified stones. No ductal dilation. Pancreas: Unremarkable. No mass. No ductal dilation. Spleen: Unremarkable. No splenomegaly. Adrenals: Unremarkable. No mass. Kidneys and ureters: Subcentimeter bilateral renal cysts, too small to characterize. No hydronephrosis. Stomach and bowel: Large right femoral hernia measures about 5.5 cm in maximal cross-sectional diameter, containing mesenteric fat and a short segment of entrapped small bowel, causing proximal small bowel dilatation/obstruction. Proximal small bowel dilatation measures up to 3 cm in maximal diameter. No mucosal thickening. PELVIS: Appendix: Normal appendix. Bladder: Unremarkable. No mass. Reproductive: Unremarkable as visualized. ABDOMEN and PELVIS: Intraperitoneal space: Unremarkable. No free air. No significant fluid collection. Bones/joints: Posterior lumbar fusion hardware from T12-L4 cause streak artifact, decreases the sensitivity on associated images. Osteopenia. Moderate degenerative changes. Soft tissues: Within normal limits Vasculature: Moderate amount of atherosclerotic calcifications. No abdominal aortic aneurysm. Lymph nodes: Unremarkable. No enlarged lymph nodes. IMPRESSION: 5.5 cm right femoral hernia containing mesenteric fat and a short segment of entrapped small bowel, causing proximal small bowel obstruction. Clay Davis Dec 24, 2019 12:21
--- NOTE | 2019-12-24 12:27 | NUR ---
NURSE NOTES: Patient is off unit for surgery
[2019-12-24] MEDS ORDERED: Propofol 200mg/20ml IV ONE (13:00)
[2019-12-24] MEDS ORDERED: NS Irrig 1000ml ONE (13:00)
[2019-12-24] MEDS ORDERED: Sterile Water Irrig 2000ml IRRIG ONE (13:00)
[2019-12-24] MEDS ORDERED: LR 1000ml ONE (13:00)
[2019-12-24] MEDS ORDERED: Bacitracin 50000 Units Vial ONE (13:01)
[2019-12-24] MEDS ORDERED: NeoSporin Gu Irrig 1ml Amp IRRIG ONE (13:01)
[2019-12-24] MEDS ORDERED: Lidocaine 1% MPF 10mg/ml 5ml ONE (13:10)
[2019-12-24] MEDS ORDERED: Dexamethasone 4mg/ml vial ONE (13:10)
[2019-12-24] MEDS ORDERED: Sodium Chloride 10ml vial INJ ONE (13:10)
[2019-12-24] MEDS ORDERED: LR 1000ml 1,000 ML IVLG SCH (13:11)
--- NOTE | 2019-12-24 13:14 | Anethesia Preoperative Eval ---
Anesthesia Pre-op PMH/ROS General Date of Evaluation: Dec 24, 2019 Time of Evaluation: 13:01 Anesthesiologist: Chava ASA Score: ASA 3 Mallampati Score Class I : Soft palate, uvula, fauces, pillars visible Class II: Soft palate, uvula, fauces visible Class III: Soft palate, base of uvula visible Class IV: Only hard plate visible Mallampati Classification: Class II Surgeon: Ryan Family History: no anesthesia problems Allergies: Coded Allergies: No Known Allergies (Unverified , 12/22/19) Medications: see eMAR Patient NPO?: Yes NPO Date: Dec 23, 2019 NPO Time: 1900 Past Medical History Cardiovascular: Reports: HTN, other - HL HEENT: Reports: cataract (L), cataract (R) Hematology/Immune: Reports: anemia PSxH Narrative: R&L TKR Anesthesia Pre-op Phys. Exam Physician Exam Last Vital Signs Date Time Temp Pulse Resp B/P (MAP) Pulse Ox O2 Delivery O2 Flow Rate FiO2 12/24/19 12:00 97.7 65 20 126/63 (84) 98 12/24/19 09:00 Room Air Constitutional: NAD Neurologic: CN 2-12 intact Cardiovascular: RRR Respiratory: CTA Gastrointestinal: S/NT/ND Airway Exam Mallampati Score: Class II MO: limited ROM: limited Teeth: missing, intact Dentures: upper Anesthesia Pre-op A/P Labs Hematology Test 12/24/19 05:20 White Blood Count 5.8 K/UL (4.8-10.8) Red Blood Count 3.47 M/UL (4.20-5.40) L Hemoglobin 11.3 G/DL (12.0-16.0) L Hematocrit 32.4 % (37.0-47.0) L Mean Corpuscular Volume 93 FL (80-99) Mean Corpuscular Hemoglobin 32.7 PG (27.0-31.0) H Mean Corpuscular Hemoglobin Concent 35.0 G/DL (32.0-36.0) Red Cell Distribution Width 10.7 % (11.6-14.8) L Platelet Count 224 K/UL (150-450) Mean Platelet Volume 6.3 FL (6.5-10.1) L Neutrophils (%) (Auto) 55.7 % (45.0-75.0) Lymphocytes (%) (Auto) 32.7 % (20.0-45.0) Monocytes (%) (Auto) 6.9 % (1.0-10.0) Eosinophils (%) (Auto) 3.3 % (0.0-3.0) H Basophils (%) (Auto) 1.4 % (0.0-2.0) Chemistry Test 12/24/19 05:20 Sodium Level 143 MMOL/L (136-145) Potassium Level 3.5 MMOL/L (3.5-5.1) Chloride Level 110 MMOL/L (98-107) H Carbon Dioxide Level 24 MMOL/L (21-32) Anion Gap 9 mmol/L (5-15) Blood Urea Nitrogen 11 mg/dL (7-18) Creatinine 0.7 MG/DL (0.55-1.30) Estimat Glomerular Filtration Rate > 60 mL/min (>60) Glucose Level 105 MG/DL (74-106) Calcium Level 8.6 MG/DL (8.5-10.1) Risk Assessment & Plan Status Change Before Surgery: No Pre-Antibiotics Dru Gram Ancef IV Given Within 1 Hr of Incision: Yes Time Given: 13:26 Pablo Larsen MD Dec 24, 2019 13:13
[2019-12-24] MEDS ORDERED: Midazolam 2mg/2ml Inj IVP PRN (13:15)
[2019-12-24] MEDS ORDERED: Acetaminophen (Non formulary) 100 ML IV ONE (13:15)
[2019-12-24] MEDS ORDERED: fentaNYL 100 mcg/2 mL IV PRN (13:15)
[2019-12-24] MEDS ORDERED: Metoclopramide 10mg/2ml Inj IVP PRN (13:15)
[2019-12-24] MEDS ORDERED: HYDROcodone/Acetamin 5/325 tab ORAL PRN ×2 (13:15→14:30)
[2019-12-24] MEDS ORDERED: Hydromorphone 0.5mg/0.5ml inj IVP PRN (13:15)
[2019-12-24] MEDS ORDERED: LORazepam Inj 2mg/ml 1ml IV PRN (13:15)
[2019-12-24] MEDS ORDERED: DiphenhydrAMINE 50mg/ml Inj IVP PRN (13:15)
[2019-12-24] MEDS ORDERED: Labetalol 5mg/ml 20ml vial IV PRN (13:15)
[2019-12-24] MEDS ORDERED: oxyCODONE HCL/Acetaminophen 5/325mg ORAL PRN (13:15)
[2019-12-24] MEDS ORDERED: Meperidine 25mg/0.5ml Inj (FOR RIGORS ONLY) IV PRN (13:15)
[2019-12-24] MEDS ORDERED: Ketorolac 30mg Inj IV PRN ×2 (13:15)
[2019-12-24] MEDS ORDERED: HYDROcodone/Acetamin 7.5/325 tab ORAL PRN (13:15)
[2019-12-24] MEDS ORDERED: Atropine Sulfate 0.4mg/ml inj IVP PRN (13:15)
[2019-12-24] MEDS ORDERED: fentaNYL 100 mcg/2 mL IV ONE (13:16)
[2019-12-24] MEDS ORDERED: Neostigmine 1mg/ml 10ml Inj ONE (13:50)
[2019-12-24] MEDS ORDERED: Glycopyrrolate 0.2mg/ml 1ml Vial ONE ×2 (13:50→14:09)
--- NOTE | 2019-12-24 13:52 | Immediate Post-Op Evaluation ---
Immediate Post-Op Evalulation Immediate Post-Op Evalulation Procedure: Right Femoral Hernia Repair Date of Evaluation: Dec 24, 2019 Time of Evaluation: 14:47 IV Fluids: 300 LR Blood Products: 0 Estimated Blood Loss: 10 Urinary Output: 0 Blood Pressure Systolic: 140 Blood Pressure Diastolic: 70 Pulse Rate: 93 Respiratory Rate: 16 O2 Sat by Pulse Oximetry: 100 Temperature (Fahrenheit): 97.3 Pain Score (1-10): 2 Nausea: No Vomiting: No Complications 0 Patient Status: awake, reacts, patent, extubated, none Hydration Status: adequate Dru Gram Ancef IV Given Within 1 Hr of Incision: Yes Time Given: 13:26 Pablo Larsen MD Dec 24, 2019 13:52
--- NOTE | 2019-12-24 13:53 | 48 Hour Post Anesthesia Eval ---
Post Anesthesia Evaluation Procedure: Right Femoral Hernia Repair Date of Evaluation: Dec 24, 2019 Time of Evaluation: 16:54 Blood Pressure Systolic: 162 0: 83 Pulse Rate: 64 Respiratory Rate: 18 Temperature (Fahrenheit): 97.6 O2 Sat by Pulse Oximetry: 100 Airway: patent Nausea: No Vomiting: No Pain Intensity: 2 Hydration Status: adequate Cardiopulmonary Status: Stable Mental Status/LOC: patient returned to baseline Follow-up Care/Observations: 0 Post-Anesthesia Complications: 0 Follow-up care needed: N/A Pablo Larsen MD Dec 24, 2019 13:53
--- NOTE | 2019-12-24 14:18 | Brief Operative Note ---
Immediate Post Operative Note Operative Note Pre-op Diagnosis: incarcerated right femoral hernia Procedure: right femoral hernia repair with mesh Post-op Diagnosis: same as pre-op Surgeon: cameron Anesthesiologist: brenna Anesthesia: general, local Specimen: yes Complications: none Condition: stable Fluids: see records Estimated Blood Loss: minimal Drains: none Implant(s) used?: Yes Clay Davis Dec 24, 2019 14:18
[2019-12-24] MEDS ORDERED: DiphenhydrAMINE 25mg Tab ORAL PRN (14:30)
[2019-12-24] MEDS ORDERED: Milk of Magnesia 30ml Ud ORAL PRN (14:30)
[2019-12-24] MEDS ORDERED: Morphine Sulfate 2mg/ml Inj(IV/IM USE ONLY) IVP PRN (14:30)
--- NOTE | 2019-12-24 15:36 | NUR ---
NURSE NOTES: Pt came back from surgery in stable condition, AAO x4. On NC 3L/min. Denies any pain or n/v at this moment. Dressing noted, intact and clean with no blood or drainage. Side rail x 2. Bed in the lowest and locked. Call light within reach. Will continue to monitor
--- NOTE | 2019-12-24 17:04 | NUR ---
*-* INSURANCE *-* ALL AVAILABLE CLINICALS HAVE BEEN FAXED TO: [facility] ref# yet # [phone] fax# [phone] [facility] ref# [id number] FAX [phone] Work Work
[2019-12-24] MEDS: Docusate 100mg cap ORAL SCH (17:25)
--- NOTE | 2019-12-24 19:10 | NUR ---
HAND-OFF: Report given to PHILIP Salvador.
--- NOTE | 2019-12-24 19:12 | NUR ---
NURSE NOTES: Patient awake, alert, and verbally responsive to let her needs known. Speaks Upper Sor[place]. Breathing unlabored on room air without distress. Denies pain or discomfort. IV noted on left hand intact and patent running IVF as ordered. Surgical dressing intact and clean. Bed placed at the lowest with alarm, brake, and siderails up for safety. Call light placed within reach. Will continue to monitor.
--- NOTE | 2019-12-24 19:30 | Operative Note - Dictated ---
DATE OF OPERATION: 12/24/2019 PREOPERATIVE DIAGNOSIS: Incarcerated femoral hernia, right. POSTOPERATIVE DIAGNOSIS: Incarcerated femoral hernia, right. OPERATION PERFORMED: 1. Right femoral hernia repair with mesh open. 2. Partial omentectomy. ATTENDING SURGEON: Clay Davis M.D. ASSOCIATE DATA SCIENTIST: None. ANESTHESIOLOGIST: Pablo Larsen M.D. ANESTHESIA: General MEDICAL ASSISTANT SECRETARY plus local. ESTIMATED BLOOD LOSS: Minimal. IV FLUIDS: Please see anesthesia records. COMPLICATIONS: None. DRAINS: None. COUNTS: Sponge and count correct x2. SPECIMENS: 1. Partial omentum incarcerated in the hernia sac. 2. Hernia sac. IMPLANTS: Bard mesh, reference [id number], lot [id number], expiration 02/12/2024, prefix plug mesh. WOUND CLASSIFICATION: Class 1. ANTIBIOTICS: The patient was given Zosyn 1 hour prior to cut time of Zosyn. INDICATIONS FOR PROCEDURE: This is an 84-year-old female, presented to [facility] Emergency Department, complaining of worsening abdominal pain, was identified to have a incarcerated femoral hernia with bowel contents and proximal obstruction. Initially, hernia was reduced by the emergency department and the patient was seen soon after by myself, at which time recurrence was identified. I was able to reduce it as well and monitored the patient for 24 hours for return of bowel function prior to discharge. During observation, the patient noted to have re-incarceration and this time reduction was fairly difficult and groin hernia more tender, but abdominal exam improved. Given these findings, I had a long discussion with the patient and her family in regards to above findings care plan and goals of care. In evaluating the patient over the course of the initial hospitalization, she came in with a bowel obstruction secondary to incarcerated femoral hernia, which was reduced and more recently became nonreducible and causing discomfort, likely from the edema. Surgery was indicated and recommended, and discharge to outpatient care was with high risk for the patient and therefore decision made to proceed with surgical intervention. Consent was obtained from the patient and the patient was taken operating room on 12/24/2019. OPERATIVE NOTE: The patient was taken the operating room and placed on the operating table in supine position with bilateral arms out. All bony prominences were well padded. SCDs placed. Preoperative time-out taken identifying the patient procedure, operative surgical staff. The patient was already on scheduled IV antibiotics. General anesthesia was induced, the patient was intubated. The right groin was prepped and draped in standard surgical fashion. Even after induction, the hernia was not reducible and a large groin lump was identified, clearly below the inguinal ligament, given the patient's thin body habitus. At this time, an incision was made over the apex of the incarcerated hernia and carried down through the subcutaneous tissue to the identifiable hernia sac. The hernia sac was opened and murky serous fluid was evacuated. Omental contents were identified, incarcerated within the hernia sac. The amount of hernia contents were ligated and divided using a 3-0 Vicryl suture at the base and continued to have more omental contents easily intractable within the hernia and a fair portion of the omentum was dissected out and resected through this incision, sent to pathology as review specimen 1. Once a healthy portion of the omentum was identified, it was identified to be hemostatic, reduced into the abdominal cavity. The hernia was clearly identifiable to be a femoral hernia and there was a fairly [id number] side sac, clearly identified with a significant amount of edema. At this time, decision was made for high ligation of the sac and reduction. The sac was ligated using a 2-0 Prolene suture under direct visualization to ensure no bowel contents or other abdominal contents within the hernia sac upon ligation. It was ligated and divided, and reduced into the abdominal location. The femoral hernia defect was identified and anatomic landmarks were clearly visualized and noted. The inguinal ligament was identified. Anterior pectineus, posterior femoral artery with known vein during palpation laterally and the lacunar ligament medially. The pubic tubercle was palpable as well. At this time, given the size of the defect and location, decision was made to place a mesh. Given the size and the patient's body habitus, decision was made to use a Bard medium-sized prefix plug mesh as referenced above. Mesh was a near perfect fit for the location and size of the hernia and given its depth. The mesh was positioned appropriately and sutured appropriately to ensure no migration and appropriate positioning. Once this was completed, mesh was identified in satisfactory position. Satisfactory repair of the hernia was noted without complication. At this time, the wound bed was irrigated and suctioned clear. Following this, hemostasis was identified and achieved using electrocautery. The subcutaneous tissue was reapproximated using interrupted 3-0 Vicryl sutures followed by reapproximation of skin using 4-0 Monocryl subcuticular interrupted sutures. The patient tolerated the procedure well. Local anesthetic was infiltrated throughout the procedure for the patient's comfort. Steri-Strips followed by dressings were applied. The patient was extubated and taken to postanesthetic care unit in stable condition. Clay Davis M.D. DR: NAVEED JOB#: [id number] CC:
[2019-12-25] VITALS: BP 133/65
[2019-12-25] MEDS: D5 1/2NS 1,000 ML IV SCH (01:24)
[2019-12-25 04:00] VITALS: BP 125/68
[2019-12-25] MEDS: Piperacillin/Tazobactam 3.375 GM in NS 110 ML IVPB SCH ×3 (06:34→22:41)
--- NOTE | 2019-12-25 07:43 | NUR ---
HAND-OFF: Report given to PHILIP Del Valle. Plan of care endorsed.
--- NOTE | 2019-12-25 07:45 | NUR ---
NURSE NOTES: Received pt in bed, AAO x4. RA. No c/o of pain/distress noted. IV on L wrist 22g noted, running D5 1/2 NS @ 75 ml/hr. Side rails x 2. Bed in the lowest and locked. Call light within reach. Will continue to monitor
[2019-12-25 08:00] VITALS: BP 120/61
--- NOTE | 2019-12-25 08:54 | General Progress Note ---
Assessment/Plan Assessment/Plan: Right femoral hernia s/p repair Abdominal pain SBO on Abdominal CT Hypertension Hyperlipidemia PLAN surgery follow up and post op care monitor abdominal exam IV hydration follow up for dc planning per surgery impression, plan, and exam edited and reviewed in detail care discussed with RN Subjective Allergies: Coded Allergies: No Known Allergies (Unverified , 12/22/19) Subjective care noted and reviewed Objective Last 24 Hour Vital Signs Date Time Temp Pulse Resp B/P (MAP) Pulse Ox O2 Delivery O2 Flow Rate FiO2 12/25/19 08:35 Room Air 12/25/19 04:00 97.9 68 18 125/68 (87) 97 12/25/19 00:00 97.8 80 20 133/65 (87) 96 12/24/19 21:00 Room Air 12/24/19 20:00 98.2 85 18 117/66 (83) 95 12/24/19 16:30 97.4 69 20 138/65 (89) 97 12/24/19 15:30 97.7 72 20 142/72 (95) 100 12/24/19 15:20 97.8 63 18 138/62 100 Nasal Cannula 3 12/24/19 15:10 64 22 141/68 100 Nasal Cannula 3 12/24/19 14:55 73 16 130/68 100 Nasal Cannula 3 12/24/19 14:45 79 22 131/68 100 Nasal Cannula 3 12/24/19 14:35 83 19 128/69 100 Nasal Cannula 3 12/24/19 14:30 87 18 129/67 100 Simple Mask 6 12/24/19 14:28 64 18 100 12/24/19 14:27 93 16 100 12/24/19 14:25 97.3 93 16 140/75 100 Simple Mask 6 12/24/19 12:00 97.7 65 20 126/63 (84) 98 12/24/19 09:00 Room Air Intake and Output 12/24/19 12/25/19 19:00 07:00 Intake Total 500 ml 635.0 ml Output Total 10 ml Balance 490 ml 635.0 ml Intake Oral 100 ml IV Total 400 ml 635.0 ml Output Estimated Blood Loss 10 ml # Voids 4 Labs Test 12/22/19 16:30 12/22/19 17:00 12/22/19 17:44 12/23/19 05:37 White Blood Count 12.6 K/UL (4.8-10.8) 9.0 K/UL (4.8-10.8) Red Blood Count 3.90 M/UL (4.20-5.40) 3.21 M/UL (4.20-5.40) Hemoglobin 12.4 G/DL (12.0-16.0) 10.3 G/DL (12.0-16.0) Hematocrit 37.7 % (37.0-47.0) 30.0 % (37.0-47.0) Mean Corpuscular Volume 97 FL (80-99) 94 FL (80-99) Mean Corpuscular Hemoglobin 31.8 PG (27.0-31.0) 32.1 PG (27.0-31.0) Mean Corpuscular Hemoglobin Concent 32.9 G/DL (32.0-36.0) 34.3 G/DL (32.0-36.0) Red Cell Distribution Width 12.0 % (11.6-14.8) 10.7 % (11.6-14.8) Platelet Count 263 K/UL (150-450) 211 K/UL (150-450) Mean Platelet Volume 7.4 FL (6.5-10.1) 5.6 FL (6.5-10.1) Neutrophils (%) (Auto) 84.9 % (45.0-75.0) 65.4 % (45.0-75.0) Lymphocytes (%) (Auto) 12.0 % (20.0-45.0) 27.4 % (20.0-45.0) Monocytes (%) (Auto) 2.1 % (1.0-10.0) 5.6 % (1.0-10.0) Eosinophils (%) (Auto) 0.4 % (0.0-3.0) 1.1 % (0.0-3.0) Basophils (%) (Auto) 0.7 % (0.0-2.0) 0.6 % (0.0-2.0) Prothrombin Time 11.1 SEC (9.30-11.50) 11.4 SEC (9.30-11.50) Prothromb Time International Ratio 1.0 (0.9-1.1) 1.1 (0.9-1.1) Activated Partial Thromboplast Time 25 SEC (23-33) 26 SEC (23-33) Sodium Level 144 MMOL/L (136-145) 143 MMOL/L (136-145) Potassium Level 4.1 MMOL/L (3.5-5.1) 3.6 MMOL/L (3.5-5.1) Chloride Level 106 MMOL/L (98-107) 108 MMOL/L (98-107) Carbon Dioxide Level 27 MMOL/L (21-32) 24 MMOL/L (21-32) Anion Gap 12 mmol/L (5-15) 11 mmol/L (5-15) Blood Urea Nitrogen 21 mg/dL (7-18) 18 mg/dL (7-18) Creatinine 0.8 MG/DL (0.55-1.30) 0.7 MG/DL (0.55-1.30) Estimat Glomerular Filtration Rate > 60 mL/min (>60) > 60 mL/min (>60) Glucose Level 132 MG/DL (74-106) 99 MG/DL (74-106) Calcium Level 10.2 MG/DL (8.5-10.1) 8.5 MG/DL (8.5-10.1) Total Bilirubin 0.3 MG/DL (0.2-1.0) 0.5 MG/DL (0.2-1.0) Aspartate Amino Transf (AST/SGOT) 15 U/L (15-37) 11 U/L (15-37) Alanine Aminotransferase (ALT/SGPT) 17 U/L (12-78) 14 U/L (12-78) Alkaline Phosphatase 68 U/L (46-116) 49 U/L (46-116) Troponin I 0.000 ng/mL (0.000-0.056) Total Protein 7.8 G/DL (6.4-8.2) 5.9 G/DL (6.4-8.2) Albumin 3.9 G/DL (3.4-5.0) 2.7 G/DL (3.4-5.0) Globulin 3.9 g/dL 3.2 g/dL Albumin/Globulin Ratio 1.0 (1.0-2.7) 0.8 (1.0-2.7) Lipase 144 U/L (73-393) Urine Color Pale yellow Urine Appearance Cloudy Urine pH 8 (4.5-8.0) Urine Specific [place] 1.015 (1.005-1.035) Urine Protein Negative (NEGATIVE) Urine Glucose (UA) Negative (NEGATIVE) Urine Ketones Negative (NEGATIVE) Urine Blood 2+ (NEGATIVE) Urine Nitrite Negative (NEGATIVE) Urine Bilirubin Negative (NEGATIVE) Urine Urobilinogen Normal MG/DL (0.0-1.0) Urine Leukocyte Esterase Negative (NEGATIVE) Urine RBC 0-2 /HPF (0 - 2) Urine WBC 0 /HPF (0 - 2) Urine Squamous Epithelial Cells Occasional /LPF Urine Amorphous Sediment Moderate /LPF (NONE) Urine Bacteria Few /HPF (NONE) Lactic Acid Level 1.00 mmol/L (0.4-2.0) Erythrocyte Sedimentation Rate 20 MM/HR (0-30) Hemoglobin A1c 5.4 % (4.3-6.0) C-Reactive Protein, Quantitative < 0.4 mg/dL (0.00-0.90) Pro-B-Type Natriuretic Peptide 223 pg/mL (0-125) Triglycerides Level 63 MG/DL (30-150) Cholesterol Level 192 MG/DL (< 200) LDL Cholesterol 117 mg/dL (<100) HDL Cholesterol 54 MG/DL (40-60) Cholesterol/HDL Ratio 3.6 (3.3-4.4) Test 12/24/19 05:20 White Blood Count 5.8 K/UL (4.8-10.8) Red Blood Count 3.47 M/UL (4.20-5.40) Hemoglobin 11.3 G/DL (12.0-16.0) Hematocrit 32.4 % (37.0-47.0) Mean Corpuscular Volume 93 FL (80-99) Mean Corpuscular Hemoglobin 32.7 PG (27.0-31.0) Mean Corpuscular Hemoglobin Concent 35.0 G/DL (32.0-36.0) Red Cell Distribution Width 10.7 % (11.6-14.8) Platelet Count 224 K/UL (150-450) Mean Platelet Volume 6.3 FL (6.5-10.1) Neutrophils (%) (Auto) 55.7 % (45.0-75.0) Lymphocytes (%) (Auto) 32.7 % (20.0-45.0) Monocytes (%) (Auto) 6.9 % (1.0-10.0) Eosinophils (%) (Auto) 3.3 % (0.0-3.0) Basophils (%) (Auto) 1.4 % (0.0-2.0) Sodium Level 143 MMOL/L (136-145) Potassium Level 3.5 MMOL/L (3.5-5.1) Chloride Level 110 MMOL/L (98-107) Carbon Dioxide Level 24 MMOL/L (21-32) Anion Gap 9 mmol/L (5-15) Blood Urea Nitrogen 11 mg/dL (7-18) Creatinine 0.7 MG/DL (0.55-1.30) Estimat Glomerular Filtration Rate > 60 mL/min (>60) Glucose Level 105 MG/DL (74-106) Calcium Level 8.6 MG/DL (8.5-10.1) Height (Feet): 5 Height (Inches): 3.00 Weight (Pounds): 111 Objective WDWN NAD clear breath sounds bilaterally without rhonchi or wheeze [id number] without MRG NABS tender abdomen; surgical site clean no CCE nonfocal Rajinder Bishop MD Dec 25, 2019 08:54
[2019-12-25] MEDS: Docusate 100mg cap ORAL SCH ×2 (09:39→17:13)
[2019-12-25] MEDS: Irbesartan 150mg tablet ORAL SCH (09:39)
--- NOTE | 2019-12-25 10:20 | NUR ---
*-* INSURANCE *-* UPDATED CLINICALS AND REVIEWS HAVE BEEN FAXED TO: Maru [employer] no ref# yet # [phone] fax# [phone] [facility] ref# [id number] FAX [phone] Work Work Addendum: 12/25/19 at 1405 by ANGEL NASH CM REF# [id number]
[2019-12-25 12:00] VITALS: BP 129/82
--- NOTE | 2019-12-25 13:56 | NUR ---
CASE MANAGEMENT: INITIAL REVIEW 84 YR OLD FEMALE BIBA FROM HOME CC: ABD PAIN AND NAUSEA AND VOMITING SI:ABDOMINAL PAIN 97.6 90 18 120/76 100% ON RA WBC 12.6 BUN 21 CA+ 10.2 IS:IVF BOLUS X1 IV REGLAN X1 IV MORPHINE SULFATE X1 IV BENADRYL X1 CHEST X-RAY - No acute findings in the chest. CT ABD/PEL-5.5 cm right femoral hernia \: 4E MED SURG UNIT PLAN: IMAGING IN AM CASE MANAGEMENT: REVIEW 12/23/19 SI:SBO . ABDOMINAL PAIN 98.7 81 17 145/76 97% ON RA BNP 223 H/H 10.3/30.0 IS:IV D5 @75ML/HR IV ZOSYN TID AVAPRO PO QD IV PEPCID QD NORCO Q4HR/PRN X-RAY ABD- Focal gassy small bowel left mid abdomen without obstruction \: 4E MED SURG UNIT PLAN: PT IN AM CASE MANAGEMENT: REVIEW 12/24/19 SI:SBO . ABDOMINAL PAIN 97.2 71 20 142/73 98% ON RA CL- 110 H/H 11.3/32.4 IS:IV D5 @75ML/HR IV ZOSYN TID AVAPRO PO QD IV PEPCID QD NORCO Q4HR/PRN IN SURGERY NOW FOR HERNIA REPAIR \: 4E MED SURG UNIT PLAN: PT IN AM CASE MANAGEMENT: REVIEW 12/24/19 SI:SBO . ABDOMINAL PAIN 97.2 71 20 142/73 98% ON RA CL- 110 H/H 11.3/32.4 IS:IV D5 @75ML/HR IV ZOSYN TID AVAPRO PO QD IV PEPCID QD NORCO Q4HR/PRN IN SURGERY NOW FOR HERNIA REPAIR \: 4E MED SURG UNIT PLAN: PT IN AM CASE MANAGEMENT: REVIEW 12/25/19 SI:POD# 1 RIGHT FEMORAL HERNIA REPAIR WITH MESH SBO . ABDOMINAL PAIN 98.0 77 20 120/61 98% ON RA IS:IV D5 @75ML/HR IV ZOSYN TID AVAPRO PO QD IV PEPCID QD NORCO Q4HR/PRN \: 4E MED SURG UNIT PLAN: monitor abdominal exam IV hydration follow up for dc planning per surgery
--- NOTE | 2019-12-25 14:24 | NUR ---
P.T Note: P.T evaluation completed and tx initiated. Please refer to P.T evaluation for current functional status. Pt is alert, pleasant and cooperative. O x 4. Pt is limited mostly by pain on the R inguinal area aggravated by movement. Pt currently require SBA X 1 for bed mobility , transfers and gait/ambulation activities. Overall fair endurance. Skilled P.T service is warranted for improved functional mobility independence and safety following surgical procedure : Repair of R femoral hernia with mesh and partial Omentectomy 12/24/19. Recommend DC to home with family assist and home exercise program.
[2019-12-25 16:00] VITALS: BP 126/61
--- NOTE | 2019-12-25 16:18 | Surgery Progress Note ---
Surgery Progress Note Subjective Procedure Performed right femoral hernia repair with mesh Symptoms: improved, tolerating diet, voiding well, passing flatus, pain decreased Objective Last 24 Hour Vital Signs Date Time Temp Pulse Resp B/P (MAP) Pulse Ox O2 Delivery O2 Flow Rate FiO2 12/25/19 16:00 98.0 83 18 126/61 (82) 98 12/25/19 12:00 97.7 82 20 129/82 (98) 94 12/25/19 09:39 120/61 12/25/19 08:35 Room Air 12/25/19 08:00 98.0 77 20 120/61 (80) 98 12/25/19 04:00 97.9 68 18 125/68 (87) 97 12/25/19 00:00 97.8 80 20 133/65 (87) 96 12/24/19 21:00 Room Air 12/24/19 20:00 98.2 85 18 117/66 (83) 95 12/24/19 16:30 97.4 69 20 138/65 (89) 97 I&O Intake and Output 12/24/19 12/25/19 19:00 07:00 Intake Total 500 ml 635.0 ml Output Total 10 ml Balance 490 ml 635.0 ml Intake Oral 100 ml IV Total 400 ml 635.0 ml Output Estimated Blood Loss 10 ml # Voids 4 Dressing: dry Wound: clean, dry Cardiovascular: RSR Respiratory: clear Abdomen: soft, flat, non-tender, present bowel sounds Extremities: no edema, no tenderness, no cyanosis Plan Problems: (1) Leukocytosis (2) Femoral hernia of right side Assessment & Plan: Patient identified to have a re-incarcerated right inguinal hernia as CT identified with a loop of bowel causing proximal obstruction. Case discussed with emergency room physician who had fortunately initially reduce the hernia in the emergency department admitted for evaluation and care. When seen at bedside she was still with discomfort but no peritonitis. She was identified to have a right inguinal femoral hernia which I was personally able to reduce as well at the bedside. Seems likely occurred since reduction in the emergency department again but is again reducible now. I had a long discussion with the patient regards to these findings. Patient states that once reduced if not feels better again. Currently no nausea vomiting. She does have decreased bowel sounds and no flatus currently. No acute emergency surgery recommended. Will monitor closely. If continues to recur will likely recommend surgery or if not improving. Will need to monitor exam closely as exact duration of incarceration unknown and initial exam unknown to myself. There is always a potential of nonviable bowel as well. Will monitor closely without examination. If develops worsening tenderness nausea vomiting or does not improve will proceed with diagnostic laparoscopy and intervention as necessary. N.p.o., IV fluids, serial exams we will follow with recommendations thank you for let me participate in patient's care ABDOMEN: Liver: Unremarkable. No mass. Gallbladder and bile ducts: Unremarkable. No calcified stones. No ductal dilation. Pancreas: Unremarkable. No mass. No ductal dilation. Spleen: Unremarkable. No splenomegaly. Adrenals: Unremarkable. No mass. Kidneys and ureters: Subcentimeter bilateral renal cysts, too small to characterize. No hydronephrosis. Stomach and bowel: Large right femoral hernia measures about 5.5 cm in maximal cross-sectional diameter, containing mesenteric fat and a short segment of entrapped small bowel, causing proximal small bowel dilatation/obstruction. Proximal small bowel dilatation measures up to 3 cm in maximal diameter. No mucosal thickening. PELVIS: Appendix: Normal appendix. Bladder: Unremarkable. No mass. Reproductive: Unremarkable as visualized. ABDOMEN and PELVIS: Intraperitoneal space: Unremarkable. No free air. No significant fluid collection. Bones/joints: Posterior lumbar fusion hardware from T12-L4 cause streak artifact, decreases the sensitivity on associated images. Osteopenia. Moderate degenerative changes. Soft tissues: Within normal limits Vasculature: Moderate amount of atherosclerotic calcifications. No abdominal aortic aneurysm. Lymph nodes: Unremarkable. No enlarged lymph nodes. IMPRESSION: 5.5 cm right femoral hernia containing mesenteric fat and a short segment of entrapped small bowel, causing proximal small bowel obstruction. s/p repair doing well d/c planning f/u 1 week care instructions given with romanian station manager Clay Davis Dec 25, 2019 16:18
--- NOTE | 2019-12-25 18:56 | NUR ---
HAND-OFF: Report given to PHILIP Salvador.
--- NOTE | 2019-12-25 19:00 | NUR ---
NURSE NOTES: Patient awake, alert, and verbally responsive to let her needs known. Speaks Romansh. Breathing unlabored on room air without distress. Denies pain or discomfort. IV noted on left hand intact. Surgical dressing intact and clean. Bed placed at the lowest with alarm, brake, and siderails up for safety. Call light placed within reach. Will continue to monitor.
[2019-12-25 20:00] VITALS: BP 146/64
[2019-12-26] VITALS: BP 133/71
--- NOTE | 2019-12-26 00:06 | NUR ---
NURSE NOTES: Patient pulled out her IV while sleeping. Inserted a new 22g IV on left forearm. Patient explained procedure prior and during. Tolerated well. Will continue to monitor.
[2019-12-26 03:57] VITALS: BP 136/80
[2019-12-26] MEDS: Piperacillin/Tazobactam 3.375 GM in NS 110 ML IVPB SCH ×2 (06:02→15:56)
--- NOTE | 2019-12-26 07:34 | NUR ---
HAND-OFF: Report given to PHILIP Sanon and PHILIP Sr. Plan of care endorsed.
--- NOTE | 2019-12-26 07:47 | NUR ---
NURSE NOTES: Received patient in bed,awake, verbally responsive. Denies any pain or discomfort. not in respiratory/cardiac distress. Dressing on right femoral is C/D/I. Iv is intact, no s/s of infiltration. Bed is in lowest position and locked. Call light and personnel items within reach. Bed alarm is on. Reminded patient to use call light. Will continue plan of care.
[2019-12-26 08:00] VITALS: BP 130/66
[2019-12-26] MEDS: Docusate 100mg cap ORAL SCH (08:39)
[2019-12-26] MEDS: Irbesartan 150mg tablet ORAL SCH (08:39)
[2019-12-26 12:00] VITALS: BP 142/73
--- NOTE | 2019-12-26 15:22 | Surgery Progress Note ---
Surgery Progress Note Subjective Procedure Performed right femoral hernia repair with mesh Symptoms: improved, tolerating diet, passing flatus Objective Last 24 Hour Vital Signs Date Time Temp Pulse Resp B/P (MAP) Pulse Ox O2 Delivery O2 Flow Rate FiO2 12/26/19 12:00 98.8 67 18 142/73 (96) 96 12/26/19 09:00 Room Air 12/26/19 08:39 130/66 12/26/19 08:00 97.8 76 18 130/66 (87) 97 12/26/19 03:57 98.0 78 18 136/80 (98) 97 12/26/19 00:00 97.5 66 18 133/71 (91) 96 12/25/19 21:00 Room Air 12/25/19 20:00 98.8 75 18 146/64 (91) 95 12/25/19 16:00 98.0 83 18 126/61 (82) 98 I&O Intake and Output 12/25/19 12/26/19 19:00 07:00 Intake Total 110.0 ml 110.0 ml Balance 110.0 ml 110.0 ml IV Total 110.0 ml 110.0 ml # Voids 6 Dressing: dry Wound: clean Cardiovascular: RSR Respiratory: clear Abdomen: soft, flat, non-tender, present bowel sounds Extremities: no edema, no tenderness, no cyanosis Plan Problems: (1) Leukocytosis (2) Femoral hernia of right side Assessment & Plan: Patient identified to have a re-incarcerated right inguinal hernia as CT identified with a loop of bowel causing proximal obstruction. Case discussed with emergency room physician who had fortunately initially reduce the hernia in the emergency department admitted for evaluation and care. When seen at bedside she was still with discomfort but no peritonitis. She was identified to have a right inguinal femoral hernia which I was personally able to reduce as well at the bedside. Seems likely occurred since reduction in the emergency department again but is again reducible now. I had a long discussion with the patient regards to these findings. Patient states that once reduced if not feels better again. Currently no nausea vomiting. She does have decreased bowel sounds and no flatus currently. No acute emergency surgery recommended. Will monitor closely. If continues to recur will likely recommend surgery or if not improving. Will need to monitor exam closely as exact duration of incarceration unknown and initial exam unknown to myself. There is always a potential of nonviable bowel as well. Will monitor closely without examination. If develops worsening tenderness nausea vomiting or does not improve will proceed with diagnostic laparoscopy and intervention as necessary. N.p.o., IV fluids, serial exams we will follow with recommendations thank you for let me participate in patient's care ABDOMEN: Liver: Unremarkable. No mass. Gallbladder and bile ducts: Unremarkable. No calcified stones. No ductal dilation. Pancreas: Unremarkable. No mass. No ductal dilation. Spleen: Unremarkable. No splenomegaly. Adrenals: Unremarkable. No mass. Kidneys and ureters: Subcentimeter bilateral renal cysts, too small to characterize. No hydronephrosis. Stomach and bowel: Large right femoral hernia measures about 5.5 cm in maximal cross-sectional diameter, containing mesenteric fat and a short segment of entrapped small bowel, causing proximal small bowel dilatation/obstruction. Proximal small bowel dilatation measures up to 3 cm in maximal diameter. No mucosal thickening. PELVIS: Appendix: Normal appendix. Bladder: Unremarkable. No mass. Reproductive: Unremarkable as visualized. ABDOMEN and PELVIS: Intraperitoneal space: Unremarkable. No free air. No significant fluid collection. Bones/joints: Posterior lumbar fusion hardware from T12-L4 cause streak artifact, decreases the sensitivity on associated images. Osteopenia. Moderate degenerative changes. Soft tissues: Within normal limits Vasculature: Moderate amount of atherosclerotic calcifications. No abdominal aortic aneurysm. Lymph nodes: Unremarkable. No enlarged lymph nodes. IMPRESSION: 5.5 cm right femoral hernia containing mesenteric fat and a short segment of entrapped small bowel, causing proximal small bowel obstruction. s/p repair doing well d/c planning f/u 1 week care instructions given with ukrainian quality engineer medical device Additional Comments d/c home f/u 1 week Clay Davis Dec 26, 2019 15:22
[2019-12-26 16:00] VITALS: BP 122/67
[2019-12-26] MEDS ORDERED: NORCO 5-325 TA1 EAC1 ORAL (16:13)
[2019-12-26] MEDS ORDERED: D5 1/2NS 1000ml IV ONE (17:08)
[2019-12-26] MEDS ORDERED: Tubing IV Secondary IV ONE (17:08)
--- NOTE | 2019-12-26 17:08 | NUR ---
NURSE NOTES: Patient discharged to home accompanied by her daughter and son-in-law in stable condition, Prior to discharge,patient's V/S stable. Seen by Dr. Bennett. Dr. Bennett gave her prescription for her pain med. discharge instruction given to the patient and family about pain med, follow up appt with Dr. Davis, how to monitor surgical site and s/s of infection on surgical site and constipation. patient and family understood. IV and ID were removed, no s/s of infection on IV removal site. Surgical site is clean, removed guaze dressing as ordered, steri strip on it. instructed patient not to remove steri strips. Staff escorted patient to lobby. all belongings accounted for including her upper and lower dentures. No missing items.
--- NOTE | 2019-12-26 17:16 | NUR ---
*-* INSURANCE *-* UNABLE TO SEND D/C SUMMARY NOT IN THE SYSTEM [facility] no ref# yet # [phone] fax# [phone] [facility] ref# [id number] FAX [phone] Work Work
--- NOTE | 2019-12-26 18:26 | Pulmonology Progress Note ---
Assessment/Plan Assessment/Plan Pulmonary Progress Note HPI Patient is an 84 year old woman admitted with lower abdominal pain with associated vomiting. The pain is constant and severe, no diarrhea. Noted to have incarcerated Hernia on CT Abdomen. S/p surgery for femoral hernia, pain controlled Allergies: No Known Allergies Past Medical History: Hypertension, Hypercholesterolemia ROS: Negative aside from above SH: NC FH: NC Physical Exam Vital Signs Noted WDWN HEENT: NCAT, moist mm Chest: CTAB Heart: HS1, HS2, RRR Abdomen: SNTND, no rebound Extremities: Well perfused, no edema [employer]OR TENDER: Intact Impression: S/p surgery for femoral hernia Hypertension Hyperlipidemia Plan DC planning Pain meds PRN [employer] medications Laboratory Tests Test 12/22/19 16:30 12/22/19 17:00 12/22/19 17:44 White Blood Count 12.6 K/UL (4.8-10.8) H Red Blood Count 3.90 M/UL (4.20-5.40) L Hemoglobin 12.4 G/DL (12.0-16.0) Hematocrit 37.7 % (37.0-47.0) Mean Corpuscular Volume 97 FL (80-99) Mean Corpuscular Hemoglobin 31.8 PG (27.0-31.0) H Mean Corpuscular Hemoglobin Concent 32.9 G/DL (32.0-36.0) Red Cell Distribution Width 12.0 % (11.6-14.8) Platelet Count 263 K/UL (150-450) Mean Platelet Volume 7.4 FL (6.5-10.1) Neutrophils (%) (Auto) 84.9 % (45.0-75.0) H Lymphocytes (%) (Auto) 12.0 % (20.0-45.0) L Monocytes (%) (Auto) 2.1 % (1.0-10.0) Eosinophils (%) (Auto) 0.4 % (0.0-3.0) Basophils (%) (Auto) 0.7 % (0.0-2.0) Prothrombin Time 11.1 SEC (9.30-11.50) Prothrombin Time INR 1.0 (0.9-1.1) Activated Partial Thromboplast Time 25 SEC (23-33) Sodium Level 144 MMOL/L (136-145) Potassium Level 4.1 MMOL/L (3.5-5.1) Chloride Level 106 MMOL/L (98-107) Carbon Dioxide Level 27 MMOL/L (21-32) Anion Gap 12 mmol/L (5-15) Blood Urea Nitrogen 21 mg/dL (7-18) H Creatinine 0.8 MG/DL (0.55-1.30) Estimate Glomerular Filtration Rate > 60 mL/min (>60) Glucose Level 132 MG/DL (74-106) H Calcium Level 10.2 MG/DL (8.5-10.1) H Total Bilirubin 0.3 MG/DL (0.2-1.0) Aspartate Amino Transferase (AST) 15 U/L (15-37) Alanine Aminotransferase (ALT) 17 U/L (12-78) Alkaline Phosphatase 68 U/L (46-116) Troponin I 0.000 ng/mL (0.000-0.056) Total Protein 7.8 G/DL (6.4-8.2) Albumin 3.9 G/DL (3.4-5.0) Globulin 3.9 g/dL Albumin/Globulin Ratio 1.0 (1.0-2.7) Lipase 144 U/L (73-393) Urine Color Pale yellow Urine Appearance Cloudy Urine pH 8 (4.5-8.0) Urine Specific [place] 1.015 (1.005-1.035) Urine Protein Negative (NEGATIVE) Urine Glucose (UA) Negative (NEGATIVE) Urine Ketones Negative (NEGATIVE) Urine Blood 2+ (NEGATIVE) H Urine Nitrite Negative (NEGATIVE) Urine Bilirubin Negative (NEGATIVE) Urine Urobilinogen Normal MG/DL (0.0-1.0) Urine Leukocyte Esterase Negative (NEGATIVE) Urine RBC 0-2 /HPF (0 - 2) Urine WBC 0 /HPF (0 - 2) Urine Squamous Epithelial Cells Occasional /LPF Urine Amorphous Sediment Moderate /LPF (NONE) H Urine Bacteria Few /HPF (NONE) Lactic Acid Level 1.00 mmol/L (0.4-2.0) EKG: Rate: normal Rhythm: NSR ST Segments: no acute changes - Nonspecific ST-T wave changes CXR: no abnormality CT Abdomen: noted Subjective ROS Limited/Unobtainable: No Allergies: Coded Allergies: No Known Allergies (Unverified , 12/22/19) Objective Last 24 Hour Vital Signs Date Time Temp Pulse Resp B/P (MAP) Pulse Ox O2 Delivery O2 Flow Rate FiO2 12/26/19 16:00 98.9 76 18 122/67 (85) 98 12/26/19 12:00 98.8 67 18 142/73 (96) 96 12/26/19 09:00 Room Air 12/26/19 08:39 130/66 12/26/19 08:00 97.8 76 18 130/66 (87) 97 12/26/19 03:57 98.0 78 18 136/80 (98) 97 12/26/19 00:00 97.5 66 18 133/71 (91) 96 12/25/19 21:00 Room Air 12/25/19 20:00 98.8 75 18 146/64 (91) 95 Intake and Output 12/25/19 12/26/19 19:00 07:00 Intake Total 110.0 ml 110.0 ml Balance 110.0 ml 110.0 ml IV Total 110.0 ml 110.0 ml # Voids 6 Erasmo Bennett MD Dec 26, 2019 18:26
--- NOTE | 2019-12-27 13:17 | Discharge Summary ---
Discharge Summary Discharge Summary _ DATE OF ADMISSION: 12/22/2019 DATE OF DISCHARGE: 12/26/2019 DISCHARGED BY: Dr. Bishop REASON FOR ADMISSION: 84 years old female with past medical history of hypertension, hypercholesterolemia, presented with complaint of lower abdominal pain associated with vomiting. Pain reported to be severe and constant. No diarrhea. Upon evaluation vital signs were stable. Laboratory work-up revealed leukocytosis, stable hemoglobin ,hematocrit and platelet count. Stable electrolytes . BUN 21, creatinine 0.8. Glucose 132. Stable LFT and lipase. Urinalysis revealed no evidence of urinary tract infection. Lactic acid 1.0. EKG revealed sinus rhythm with nonspecific ST-T wave changes. Troponin was negative. CT scan of the abdomen and pelvis demonstrated 5.5 cm right femoral hernia , containing mesenteric fat and a short segment of entrapped small bowel, causing proximal small bowel obstruction. Chest x-ray demonstrated no acute cardiopulmonary pathology. Surgeon consulted . Surgeon initially was able to reduce hernia slightly in the emergency department . Hernia later was further reduced by emergency room physician prior to patient being transferred to the floor. Patient received 1 L of fluid, analgesic, antiemetic, empiric antibiotic and admitted to medical surgical floor for possible surgical intervention. CONSULTANTS: surgery Dr. Davis [facility] COURSE: Patient admitted to medical surgical floor. Patient was kept n.p.o. Patient started on IV fluids and empiric antibiotics. Pain management was addressed as needed. Antiemetic provided as needed. Surgeon followed with serial exam. Abdominal x-ray the next day revealed focal gassy small bowel left mid abdomen without obstruction. Oral contrast was able to reach the distal sigmoid colon. On examination noted that hernia was recurred and it was more difficult to reduce it. Patient reported not passing significant flatus. No fever or chills. No nausea or vomiting. Given the findings of recurred hernia, which causing her significant discomfort , surgeon recommended hernia repair prior to discharge . Patient consented and subsequently undergone on 12/23 right femoral hernia repair with mesh and partial omentectomy. Patient tolerated procedure well. Postoperatively pain management was addressed as needed. Patient slowly started on diet as tolerated. Ambulation was encouraged. Incentive spirometry provided while in the bed. Wound appeared clean and dressing was dry. DVT prophylaxis provided. Patient was able to tolerate diet. Patient was voided without difficulty. Blood pressure was managed with angiotensin receptor rafy and remained stable. Antibiotic continued. Bowel regimen instituted. Supportive care provided. Leukocytosis resolved, no fevers. Patient was stable for discharge home. Follow-up with her primary care provider and surgeon in 1 week. FINAL DIAGNOSES: Incarcerated right femoral hernia Status post right femoral hernia repair with mesh , partial omentectomy Abdominal pain-resolved Small bowel obstruction on CT scan Hypertension Hyperlipidemia DISCHARGE MEDICATIONS: See Medication Reconciliation list. DISCHARGE INSTRUCTIONS: Patient was discharged home. Follow-up with a primary care provider and surgeon in 1 week. I have been assigned to dictate discharge summary for this account. I was not involved in the patient's management. Kenna Flynn NP Dec 27, 2019 13:17
--- NOTE | 2019-12-31 15:37 | NUR ---
*-* INSURANCE *-* DISCHARGE SUMMARY HAS BEEN FAXED TO: [facility] ref# yet # [phone] fax# [phone] [facility] ref# [id number] FAX [phone] Work Work
== END 2019-12-26 17:09 | disposition home or self-care (01) | DRG 351 ==
LOC: EDBD 16:24 → CMPBEDREQ 16:40 → EMR 16:40 → OBSVTOIN 17:37 → 4E 17:37 → EDBEDREQ 18:53 → 4E 20:35
PROC: 0DBU0ZZ Excision of Omentum, Open Approach (ICD-10-PCS; principal; 2019-12-24 15:00)
PROC: 0YU70JZ Supplement Right Femoral Region with Synthetic Substitute, Open Approach (ICD-10-PCS; principal; 2019-12-24 15:00)
DX: K41.30 Unilateral femoral hernia, with obstruction, without gangrene, not specified as recurrent (principal); K56.609 Unspecified intestinal obstruction, unspecified as to partial versus complete obstruction; I10 Essential (primary) hypertension; E78.5 Hyperlipidemia, unspecified; D72.828 Other elevated white blood cell count
CPT/HCPCS: 36415; 71045; 74018; 74177; 80048; 80053; 80061; 81003; 83036; 83605; 83690; 83880; 84484; 85025; 85610; 85651; 85730; 86140; 86850; 86900; 86901; 93005; 94003; 94150; 96361; 96365; 96375; 99285; J2250; J2405; J2710; J2765; J7030